=== PATIENT | female | born 1980 | race Caucasian/White ===

== ENCOUNTER 2020-05-20 12:57 | Outpatient (REF) | payer BC, SELFPAY ==
[2020-05-20 14:49] LABS: Free T4 (Free Thyroxine) 0.94 ng/dL (0.71-1.85); Thyroid Stimulating Hormone 0.99 uIU/mL (0.32-4.0)
== END 2020-05-20 12:58 | disposition home or self-care (01) ==
LOC: HO.HMGCLDS 12:57
PROVIDERS: PCP Internal Medicine; Visit Provider Internal Medicine Endocrinology, Diabetes & Metabolism
DX: E03.8 Other specified hypothyroidism (principal)
CPT/HCPCS: 84439; 84443

== ENCOUNTER → 2020-05-23 11:43 | Outpatient (BNVA) | payer BC, SELFPAY | PROVIDERS: PCP Internal Medicine; Referring Provider Internal Medicine; Visit Provider Internal Medicine Endocrinology, Diabetes & Metabolism | DX: Z76.89 Persons encountering health services in other specified circumstances (principal) ==

== ENCOUNTER 2020-06-13 08:04 | Outpatient (REF) | payer BC, SELFPAY ==
--- NOTE | 2020-06-13 08:07 | US_ITS ---
EXAMINATION: US THYROID CLINICAL INFORMATION: Fabián disease, enlarged thyroid. COMPARISON: None TECHNIQUE: Linear transducer clements-scale and color Doppler examination with attention to the region of the thyroid. FINDINGS: SIZE: Measurements of the thyroid lobes and nodules are given in sagittal, anteroposterior and transverse dimensions respectively. Right Thyroid Lobe: 5.85 x 2.06 x 1.74 cm, volume 11.0 mL. Parenchyma: The gland echotexture is heterogeneous. Thyroid vascularity is normal. Left Thyroid Lobe: 5.50 x 1.58 x 1.86 cm, volume 8.44 mL. Parenchyma: The gland echotexture is heterogeneous. Thyroid vascularity is normal. Isthmus: 0.81 cm in maximum AP dimension. RIGHT THYROID LOBE: There are 4 nodules seen. 1. Location: Lower. Size: 1.4 x 0.80 x 1.0 cm. Nodule characteristics: Hyperechoic, hypoechoic rind with intranodular flow.. 2. Location: Mid pole. Size: 1.3 x 1.3 x 1.4 cm. Nodule characteristics: Hypoechoic, irregular margins with peripheral vascular flow, likely complex cyst. 3. Location: Midpole. Size: 0.81 x 0.60 x 0.60 cm. Nodule characteristics: Heterogeneous, smoothly marginated with intranodular flow. 4. Location: Upper. Size: 1.0 x 1.0 x 0.70 cm. Nodule characteristics: Heterogeneous, smoothly marginated with intranodular flow. ISTHMUS: No nodules. LEFT THYROID LOBE: There is 1 nodule seen. 1. Location: Upper/mid. Size: 1.1 x 1.0 x 0.90 cm. Nodule characteristics: Hypoechoic, smoothly marginated with intranodular flow. NODES: No lymphadenopathy is seen in the tissue surrounding the thyroid gland. US/US thyroid IMPRESSION: Two suspicious nodules. The 1st nodule is hyperechoic and the 2nd nodule is hypoechoic with internal echogenicity and irregular borders. Both these nodules are suspicious especially the hypoechoic nodule. Recommend fine-needle biopsy or short-term follow-up in 6 months.
== END 2020-06-13 08:05 | disposition home or self-care (01) ==
LOC: HO.HMGCX 08:04
PROVIDERS: PCP Internal Medicine; Visit Provider Internal Medicine Endocrinology, Diabetes & Metabolism
DX: E03.8 Other specified hypothyroidism (principal); E06.3 Autoimmune thyroiditis
CPT/HCPCS: 76536

== ENCOUNTER 2020-07-13 12:32 | Outpatient (REF) | payer BC, SELFPAY ==
--- NOTE | 2020-07-13 14:47 | XR_ITS ---
EXAMINATION: XR CHEST CLINICAL INFORMATION: Moderate/severe obesity due to excess calories. COMPARISON: Chest 03/15/2020 TECHNIQUE: 2 views of the chest were obtained. FINDINGS: No significant abnormality is noted involving the heart, lungs, mediastinum, bony thorax or soft tissues. XR/XR chest 2V IMPRESSION: Unremarkable chest examination. No change from 03/15/2020
[2020-07-13 16:33] LABS: MANUAL DIFF FLAG NO
[2020-07-13 16:40] LABS: Basophils Absolute Auto 0.1 X10*3/uL (0.0-0.2); Basophils Percent Auto 0.7 % (0-2); Eosinophils Absolute Auto 0.3 X10*3/uL (0.0-0.4); Eosinophils Percent Auto 3.8 % (0-4); Hematocrit 38.4 % (37-47); Hemoglobin 11.7 g/dl (12.0-16.0); Imm Gran Abs Auto 0.01 X10*3/uL (0.00-0.03); Imm Gran Pct Auto 0.1 % (0.0-0.4); Lymphocytes Absolute Auto 2.1 X10*3/uL (1.2-4.9); Lymphocytes Percent Auto 23.8 % (20-40); Mean Corpuscular HGB Conc 30.5 g/dl (31.0-35.0); Mean Corpuscular Hemoglobin 24.5 pg (27.0-33.0); Mean Corpuscular Volume 80.3 fL (80-98); Mean Platelet Volume 10.3 fL (9.4-12.3); Monocytes Absolute Auto 0.5 X10*3/uL (0.1-1.2); Monocytes Percent Auto 5.8 % (2-11); Neutrophils Absolute Auto 5.9 X10*3/uL (2.0-8.3); Neutrophils Percent Auto 65.8 % (45-73); Platelet Count 500 X10*3/uL (160-400); Red Blood Count 4.78 X10*6/uL (4.20-5.50); Red Cell Distribution Width 14.9 % (11.0-16.0)
[2020-07-13 16:42] LABS: Estimated Average Glucose 111 mg/dL; Hemoglobin A1c % 5.5 %
[2020-07-13 17:02] LABS: Alanine Aminotransferase 17 U/L (0-31); Albumin Level 4.4 g/dL (3.5-5.0); Alkaline Phosphatase 52 U/L (39-117); Anion Gap 14 (12-20); Aspartate Amino Transferase 15 U/L (5-31); Bilirubin Total 0.3 mg/dL (0.0-1.0); Blood Urea Nitrogen 10 mg/dL (9-16); C Reactive Protein 3.23 mg/dL (< or = 0.50); Calcium 8.9 mg/dL (8.4-10.2); Carbon Dioxide 27 mmol/L (22-29); Chloride 103 mmol/L (96-108); Cholesterol 167 mg/dL; Estimated Glomerular Filt Rate > 60; Glucose Random 91 mg/dL (60-115); HDL Cholesterol 50 mg/dL; LDL Cholesterol Calculated 95 mg/dl; Potassium 4.3 mmol/l (3.3-5.1); Sodium 140 mmol/L (135-145); Total Protein 7.2 g/dL (6.5-8.0); Triglycerides 110 mg/dL
[2020-07-13 17:25] LABS: Ferritin 11 ng/mL (10-122); TSH reflex Free T4 3.61 mIU/mL (0.32-4.0); Vitamin D 25-OH Total 33.3 ng/mL (>30)
[2020-07-13 17:33] LABS: Folate 10.1 ng/mL (> or = 4.0); Vitamin B12 563 pg/mL (200-900)
[2020-07-14 16:22] LABS: Calcium (PTHI) 9.3 mg/dL (8.6-10.2); PTHI 41 pg/mL (14-64)
[2020-07-15 16:33] LABS: Zinc 59 mcg/dL (60-130)
[2020-07-18 12:56] LABS: Vitamin B1 18 nmol/L (8-30)
[2020-07-20 14:17] LABS: Vitamin A 34 mcg/dL (38-98)
== END 2020-07-13 12:33 | disposition home or self-care (01) ==
LOC: HO.HMGCLDS 12:32
PROVIDERS: PCP Internal Medicine; Visit Provider Physician Assistant
DX: E66.01 Morbid (severe) obesity due to excess calories (principal); Z68.43 Body mass index [BMI] 50.0-59.9, adult; E04.2 Nontoxic multinodular goiter; E03.8 Other specified hypothyroidism; E06.3 Autoimmune thyroiditis
CPT/HCPCS: 36415; 71046; 80053; 80061; 82306; 82607; 82728; 82746; 83036; 83525; 83970; 84425; 84443; 84590; 84630; 85025; 86140

== ENCOUNTER 2020-07-14 08:04 | Outpatient (REF) | payer BC, SELFPAY ==
--- NOTE | 2020-07-14 08:08 | ECG_ITS ---
Test Reason : E66.01 Blood Pressure : / mmHG Vent. Rate : 074 BPM Atrial Rate : 074 BPM P-R Int : 162 ms QRS Dur : 096 ms QT Int : 380 ms P-R-T Axes : 010 043 027 degrees QTc Int : 421 ms Normal sinus rhythm Normal ECG No previous ECGs available Referred By: Johanna Alas Electronically Signed By:Jesus Clay
--- NOTE | 2020-07-14 09:43 | P.BOP_ITS ---
Brief Operative Note Date of Service: 07/14/20 Pre-op diagnosis: NONTOXIC MULTINODULAR GOITER Post-op diagnosis: same Procedure: This procedure was explained to the patient. Alternatives, risks and benefits were discussed. Written consent was obtained. After sterile preparation of the skin, fine-needle aspiration biopsy of right mid pole thyroid nodule, size 1.3 x 1.3 x 1.4 cm was performed under direct ultrasound guidance to confirm accurate needle placement. Three passes were performed with 27 gauge needles. Sample was submitted to cytology, initial cytology reading was adequate. Two passes were dedicated for [employer] genomic sequencing four horse hitch driver test. Second fine needle aspiration biopsy was performed in left mid pole nodule, size 1.1 x 1.0 x 0.90 cm was performed under direct ultrasound guidance to confirm accurate needle placement. Three passes were performed with 27 gauge needles. Samples were submitted for cytology, initial cytology reading was adequate. Two passes were dedicated for [employer] genomic sequencing four horse hitch driver test. Patient tolerated procedure well. Aftercare instructions were provided. Impression: uncomplicated fine-needle aspiration biopsy of ------ thyroid nodule under direct ultrasound guidance. Surgeon: Carie Multani MD Anesthesia: local (Lidocaine 1% 2 ml.) Estimated blood loss (mL): 0 Condition: stable Disposition: same day
[2020-07-14] MEDS: Lidocaine HCl 1 % MPF 5 ML VIAL SUBCUT (12:10)
== END 2020-07-14 08:05 | disposition home or self-care (01) ==
LOC: HO.US 08:04
PROVIDERS: PCP Internal Medicine; Referring Provider Physician Assistant; Visit Provider Internal Medicine Endocrinology, Diabetes & Metabolism
DX: Z01.818 Encounter for other preprocedural examination (principal); E04.2 Nontoxic multinodular goiter; E66.01 Morbid (severe) obesity due to excess calories; Z68.43 Body mass index [BMI] 50.0-59.9, adult
CPT/HCPCS: 10005; 10006; 88172; 88173; 93005

== ENCOUNTER 2020-07-20 12:06 | Outpatient (REF) | payer BC, SELFPAY ==
[2020-07-20 14:49] LABS: Free T4 (Free Thyroxine) 1.05 ng/dL (0.71-1.85); Thyroid Stimulating Hormone 2.81 uIU/mL (0.32-4.0)
[2020-07-21 06:28] LABS: Thyroglobulin Antibodies <1 IU/mL (< or = 1); Thyroid Peroxidase Antibodies >900 IU/mL (<9)
== END 2020-07-20 12:07 | disposition home or self-care (01) ==
LOC: HO.LAB 12:06
PROVIDERS: PCP Internal Medicine; Visit Provider Internal Medicine Endocrinology, Diabetes & Metabolism
DX: E04.2 Nontoxic multinodular goiter (principal); E03.8 Other specified hypothyroidism; E06.3 Autoimmune thyroiditis; E66.01 Morbid (severe) obesity due to excess calories; Z68.43 Body mass index [BMI] 50.0-59.9, adult; Z79.899 Other long term (current) drug therapy
CPT/HCPCS: 36415; 84439; 84443; 86376; 86800

== ENCOUNTER → 2020-07-28 08:26 | Outpatient (BNVA) | payer BC, SELFPAY | PROVIDERS: PCP Internal Medicine; Visit Provider Physician Assistant ==

== ENCOUNTER → 2020-08-05 15:21 | Outpatient (BNVA) | payer BC, SELFPAY | PROVIDERS: PCP Internal Medicine; Visit Provider Surgery | DX: Z01.818 Encounter for other preprocedural examination (principal); E50.9 Vitamin A deficiency, unspecified ==

== ENCOUNTER → 2020-08-22 08:11 | Outpatient (BNVA) | payer BC, SELFPAY | PROVIDERS: PCP Internal Medicine; Visit Provider Dietitian, Registered ==

== ENCOUNTER 2020-08-30 10:55 | Outpatient (REF) | payer BC, SELFPAY ==
[2020-08-31 15:22] LABS: H Pylori Breath Test NOT DETECTED (NOT DETECTED)
== END 2020-08-30 10:56 | disposition home or self-care (01) ==
LOC: HO.LNP 10:55
PROVIDERS: PCP Internal Medicine; Visit Provider Surgery
DX: E66.01 Morbid (severe) obesity due to excess calories (principal); Z68.42 Body mass index [BMI] 45.0-49.9, adult; Z11.0 Encounter for screening for intestinal infectious diseases
CPT/HCPCS: 83013

== ENCOUNTER → 2020-09-05 07:48 | Outpatient (BNVA) | payer BC, SELFPAY | PROVIDERS: PCP Internal Medicine; Visit Provider Internal Medicine Endocrinology, Diabetes & Metabolism ==

== ENCOUNTER → 2020-09-12 13:07 | Outpatient (BNVA) | payer BC, SELFPAY | PROVIDERS: PCP Internal Medicine; Visit Provider Dietitian, Registered ==

== ENCOUNTER → 2020-09-13 15:32 | Outpatient (BNVA) | payer BC, SELFPAY | PROVIDERS: PCP Internal Medicine; Visit Provider Surgery ==

== ENCOUNTER → 2020-09-30 08:55 | Outpatient (BNVA) | payer BC, SELFPAY | PROVIDERS: PCP Internal Medicine; Visit Provider Surgery ==

== ENCOUNTER 2020-10-13 07:48 | Outpatient (REF) | payer BC, SELFPAY ==
[2020-10-13 12:28] LABS: Free T4 (Free Thyroxine) 1.01 ng/dL (0.71-1.85); Thyroid Stimulating Hormone 0.05 uIU/mL (0.32-4.0)
[2020-10-18 12:51] LABS: Vitamin A 23 mcg/dL (38-98)
[2020-10-19 05:46] LABS: Thyroglobulin Antibody <1 IU/mL (<=1); Thyroglobulin Level 0.5 ng/mL
== END 2020-10-13 07:49 | disposition home or self-care (01) ==
LOC: HO.HMGCLDS 07:48
PROVIDERS: Surgery; PCP Internal Medicine; Visit Provider Internal Medicine Endocrinology, Diabetes & Metabolism
DX: Z01.818 Encounter for other preprocedural examination (principal); E50.9 Vitamin A deficiency, unspecified; C73 Malignant neoplasm of thyroid gland; E03.8 Other specified hypothyroidism; E04.2 Nontoxic multinodular goiter; E06.3 Autoimmune thyroiditis
CPT/HCPCS: 36415; 84432; 84439; 84443; 84590; 86800

== ENCOUNTER → 2020-10-19 09:10 | Outpatient (BNVA) | payer BC, SELFPAY | PROVIDERS: PCP Internal Medicine; Visit Provider Internal Medicine Endocrinology, Diabetes & Metabolism ==

== ENCOUNTER → 2020-10-21 15:33 | Outpatient (BNVA) | payer BC, SELFPAY | PROVIDERS: PCP Internal Medicine; Visit Provider Physician Assistant ==

== ENCOUNTER → 2020-10-24 15:35 | Outpatient (BNVA) | payer BC, SELFPAY | PROVIDERS: PCP Internal Medicine; Visit Provider Surgery ==

== ENCOUNTER → 2020-11-15 14:20 | Outpatient (BNVA) | payer BC, SELFPAY | PROVIDERS: PCP Internal Medicine; Referring Provider Internal Medicine; Visit Provider Surgery ==

== ENCOUNTER → 2020-11-28 07:57 | Outpatient (BNVA) | payer BC, SELFPAY | PROVIDERS: PCP Internal Medicine; Visit Provider Internal Medicine Endocrinology, Diabetes & Metabolism | DX: C73 Malignant neoplasm of thyroid gland (principal) | CPT/HCPCS: 96372; J3240 ==

== ENCOUNTER → 2020-11-29 07:54 | Outpatient (BNVA) | payer BC, SELFPAY | PROVIDERS: PCP Internal Medicine; Visit Provider Internal Medicine Endocrinology, Diabetes & Metabolism | DX: C73 Malignant neoplasm of thyroid gland (principal) | CPT/HCPCS: 96372 ==

== ENCOUNTER 2020-11-30 07:55 | Outpatient (REF) | payer BC, SELFPAY ==
[2020-11-30 10:42] LABS: HCG Quantitative < 2 mIU/mL
[2020-11-30 12:17] LABS: HCG Quantitative < 2 mIU/mL; Thyroid Stimulating Hormone 60.29 uIU/mL (0.32-4.0)
[2020-12-04 03:47] LABS: Thyroglobulin Antibody <1 IU/mL (<=1); Thyroglobulin Level 0.5 ng/mL
[2020-12-04 11:27] LABS: Vitamin A 35 mcg/dL (38-98)
== END 2020-11-30 07:56 | disposition home or self-care (01) ==
LOC: HO.HMGCLDS 07:55
PROVIDERS: Surgery; PCP Internal Medicine; Visit Provider Internal Medicine Endocrinology, Diabetes & Metabolism
DX: Z01.818 Encounter for other preprocedural examination (principal); C73 Malignant neoplasm of thyroid gland; E50.9 Vitamin A deficiency, unspecified; E03.8 Other specified hypothyroidism; E04.2 Nontoxic multinodular goiter; E06.3 Autoimmune thyroiditis
CPT/HCPCS: 36415; 84432; 84439; 84443; 84590; 84702; 86800

== ENCOUNTER 2020-12-24 09:25 | Outpatient (REF) | payer BC, SELFPAY ==
[2020-12-24 11:04] LABS: Free T4 (Free Thyroxine) 1.13 ng/dL (0.71-1.85); Thyroid Stimulating Hormone 0.03 uIU/mL (0.32-4.0)
[2020-12-27 03:47] LABS: Thyroglobulin Antibody <1 IU/mL (<=1); Thyroglobulin Level <0.1 ng/mL
[2020-12-28 14:56] LABS: Vitamin A 39 mcg/dL (38-98)
== END 2020-12-24 09:26 | disposition home or self-care (01) ==
LOC: HO.LAB 09:25
PROVIDERS: Surgery; PCP Internal Medicine; Visit Provider Internal Medicine Endocrinology, Diabetes & Metabolism
DX: Z01.818 Encounter for other preprocedural examination (principal); E50.9 Vitamin A deficiency, unspecified; C73 Malignant neoplasm of thyroid gland
CPT/HCPCS: 36415; 84432; 84439; 84443; 84590; 86800

== ENCOUNTER → 2020-12-26 08:08 | Outpatient (BNVA) | payer BC, SELFPAY | PROVIDERS: PCP Internal Medicine; Visit Provider Internal Medicine Endocrinology, Diabetes & Metabolism ==

== ENCOUNTER → 2021-01-09 14:17 | Outpatient (BNVA) | payer BC, SELFPAY | PROVIDERS: PCP Internal Medicine; Referring Provider Internal Medicine; Visit Provider Surgery ==

== ENCOUNTER 2021-03-03 07:42 | Outpatient (REF) | payer BC, SELFPAY ==
[2021-03-03 12:14] LABS: Free T4 (Free Thyroxine) 1.09 ng/dL (0.71-1.85); Thyroid Stimulating Hormone 0.22 uIU/mL (0.32-4.0)
[2021-03-08 05:01] LABS: Thyroglobulin Antibody <1 IU/mL (<=1); Thyroglobulin Level 0.2 ng/mL
== END 2021-03-03 07:43 | disposition home or self-care (01) ==
LOC: HO.HMGCLDS 07:42
PROVIDERS: PCP Internal Medicine; Visit Provider Internal Medicine Endocrinology, Diabetes & Metabolism
DX: C73 Malignant neoplasm of thyroid gland (principal)
CPT/HCPCS: 36415; 84432; 84439; 84443; 86800

== ENCOUNTER → 2021-04-14 13:58 | Outpatient (BNVA) | payer BC, SELFPAY | PROVIDERS: PCP Internal Medicine; Referring Provider Surgery; Visit Provider Physician Assistant Surgical ==

== ENCOUNTER 2021-05-01 07:34 | Outpatient (REF) | payer BC, SELFPAY ==
[2021-05-01 07:53] LABS: MANUAL DIFF FLAG NO
[2021-05-01 11:48] LABS: Basophils Percent Auto 0.5 % (0-2); Eosinophils Absolute Auto 0.5 X10*3/uL (0.0-0.4); Eosinophils Percent Auto 5.5 % (0-4); Hematocrit 39.1 % (37.0-47.0); Hemoglobin 12.2 g/dl (12.0-16.0); Imm Gran Abs Auto 0.03 X10*3/uL (0.00-0.03); Imm Gran Pct Auto 0.4 % (0.0-0.4); Immature Retic Fraction 20.3 % (3.0-15.9); Lymphocytes Absolute Auto 1.8 X10*3/uL (1.2-4.9); Lymphocytes Percent Auto 20.4 % (20-40); Mean Corpuscular HGB Conc 31.2 g/dl (31.0-35.0); Mean Corpuscular Hemoglobin 26.2 pg (27.0-33.0); Mean Corpuscular Volume 84.1 fL (80.0-98.0); Mean Platelet Volume 10.1 fL (9.4-12.3); Monocytes Absolute Auto 0.5 X10*3/uL (0.1-1.2); Monocytes Percent Auto 5.7 % (2-11); Neutrophils Absolute Auto 5.8 x10*3/uL (2.0-8.3); Neutrophils Percent Auto 67.5 % (45-73); Platelet Count 420 X10*3/uL (160-400); Red Blood Count 4.65 X10*6/uL (4.20-5.50); Red Cell Distribution Width 14.4 % (11.0-16.0); Retic HGB Equivalent 28.9 pg (30.0-35.0); Reticulocyte Percent 1.7 % (0.5-1.8); Reticulocytes Absolute 0.079 X10*6/uL (0.026-0.095); White Blood Count 8.6 X10*3/uL (4.8-10.8)
[2021-05-01 12:16] LABS: Estimated Average Glucose 105 mg/dL; Hemoglobin A1c % 5.3 %
[2021-05-01 12:28] LABS: Alanine Aminotransferase 18 U/L (0-31); Albumin Level 3.9 g/dL (3.5-5.0); Alkaline Phosphatase 57 U/L (39-117); Anion Gap 12 (12-20); Aspartate Amino Transferase 18 U/L (5-31); Bilirubin Total 0.5 mg/dL (0.0-1.0); Blood Urea Nitrogen 11 mg/dL (9-16); Calcium 8.4 mg/dL (8.4-10.2); Carbon Dioxide 27 mmol/L (22-29); Chloride 105 mmol/L (96-108); Cholesterol 181 mg/dL; Estimated Glomerular Filt Rate > 60; Glucose Random 88 mg/dL (60-115); HDL Cholesterol 51 mg/dL; Iron 38 mcg/dL (30-160); LDL Cholesterol Calculated 112 mg/dl; Percent Iron Saturation 11 % (15-50); Potassium 4.4 mmol/L (3.3-5.1); Sodium 140 mmol/L (135-145); Total Iron Binding Capacity 346 mcg/dL (228-428); Total Protein 6.6 g/dL (6.5-8.0); Triglycerides 94 mg/dL; Unsaturated Iron Binding 308 ug/dL
[2021-05-01 12:32] LABS: Ferritin 14 ng/mL (10-122); Free T4 (Free Thyroxine) 0.98 ng/dL (0.71-1.85); Thyroid Stimulating Hormone 0.57 uIU/mL (0.32-4.0); Vitamin D 25-OH Total 27.3 ng/mL (>30)
[2021-05-01 12:35] LABS: Folate 10.6 ng/mL (> or = 4.0); Vitamin B12 453 pg/mL (200-900)
[2021-05-05 07:12] LABS: Thyroglobulin Antibody <1 IU/mL (<=1); Thyroglobulin Level 0.1 ng/mL
[2021-05-06 01:46] LABS: Vitamin A 36 mcg/dL (38-98)
== END 2021-05-01 07:35 | disposition home or self-care (01) ==
LOC: HO.HMGCLDS 07:34
PROVIDERS: Internal Medicine Endocrinology, Diabetes & Metabolism; PCP Internal Medicine; Visit Provider Internal Medicine
DX: E89.0 Postprocedural hypothyroidism (principal)
CPT/HCPCS: 36415; 80053; 80061; 82306; 82607; 82728; 82746; 83036; 83540; 84432; 84439; 84443; 84590; 85025; 85045; 86800

== ENCOUNTER → 2021-05-22 07:53 | Outpatient (BNVA) | payer BC, SELFPAY | PROVIDERS: PCP Internal Medicine; Referring Provider Internal Medicine; Visit Provider Internal Medicine ==

== ENCOUNTER 2021-05-31 11:31 | Outpatient (REF) | payer BC, SELFPAY ==
--- NOTE | ~2021-05-31 | US_ITS ---
EXAMINATION: US SOFT TISSUE NECK CLINICAL INFORMATION: Post thyroidectomy August 2020. History of papillary thyroid cancer. COMPARISON: None TECHNIQUE: Ultrasound of the neck soft tissues is performed with high-frequency clements-scale imaging and color Doppler. FINDINGS: THYROID BED: Prior thyroidectomy. No residual thyroid tissue demonstrated in the thyroid bed. No cystic or solid nodules demonstrated in the thyroid bed. RIGHT NECK SOFT TISSUES: There are 6 right cervical lymph nodes identified. The largest nodes are as follows: Level 2: 1.7 x 0.5 x 1.1 cm. Abnormal fei architecture with slit-like or absent hilum. The remainder of the lymph nodes demonstrate normal ultrasound morphology. The next largest lymph node: Level 3: 1.5 x 0.3 x 0.8 cm. Normal fei architecture. LEFT NECK SOFT TISSUES: There are 6 left cervical lymph nodes identified. The largest nodes are as follows: Level 5A: 1.9 x 0.4 x 1.1 cm. Abnormal architecture with slitlike or absent hilum. The remainder of the lymph nodes demonstrate normal ultrasound morphology. Level 5B: 1.2 x 0.2 x 0.8 cm. Normal fei architecture. Level 2: 1 x 0.5 x 0.8 cm. Normal fei architecture. US/US soft tiss head and/or neck IMPRESSION: No residual thyroid tissue or nodule seen. Bilateral cervical lymph nodes.
== END 2021-05-31 11:32 | disposition home or self-care (01) ==
LOC: HO.HMGCX 11:31
PROVIDERS: Visit Provider Internal Medicine
DX: Z85.850 Personal history of malignant neoplasm of thyroid (principal)
CPT/HCPCS: 76536

== ENCOUNTER → 2021-06-28 14:19 | Outpatient (BNVA) | payer BC, SELFPAY | PROVIDERS: PCP Internal Medicine; Visit Provider Internal Medicine ==

== ENCOUNTER 2021-07-10 09:02 | Outpatient (REF) | payer BC, SELFPAY ==
--- NOTE | ~2021-07-10 | US_ITS ---
EXAMINATION: ULTRASOUND-GUIDED LYMPH NODE FINE-NEEDLE ASPIRATION CLINICAL INFORMATION: Cervical lymphadenopathy. History of thyroid cancer. COMPARISON: Previous neck ultrasound 05/31/2021 TECHNIQUE: Procedure and risks and benefits including bleeding and infection were discussed with the patient and informed consent was obtained. Initially, the left neck was prepped and draped in the usual sterile fashion. The skin and soft tissues were anesthetized with 1% lidocaine plain. Using a 25-gauge needle, 2 FNA specimens left level 5A lymph node were obtained. Subsequently, the right neck was prepped and draped in the usual sterile fashion. The skin and soft tissues were anesthetized with 1% lidocaine plain. Using guidance and a 25-gauge needle, 4 separate 25-gauge FNA specimens of the right lobe of 2 lymph nodes were obtained. FINDINGS: There is a 0.3 x 1.5 x 0.4 cm right level 2 lymph node and a 0.8 x 1.4 x 0.7 cm left level 5A lymph node that was targeted for fine-needle aspiration. US/US biopsy lymph node IMPRESSION: Bilateral cervical lymph node fine-needle aspiration.
[2021-07-10] MEDS: Lidocaine HCl 1 % MPF 5 ML VIAL 6 ML SUBCUT (10:42)
[2021-07-15 17:42] LABS: Thyroglobulin, Fine Needle Asp <0.1 ng/mL
== END 2021-07-10 09:03 | disposition home or self-care (01) ==
LOC: HO.US 09:02
PROVIDERS: Radiology Diagnostic Radiology; Visit Provider Internal Medicine
DX: R59.0 Localized enlarged lymph nodes (principal)
CPT/HCPCS: 36415; 38505; 76942; 84432; 88172; 88173; 88177

== ENCOUNTER 2021-10-06 14:12 | Outpatient (REF) | payer BC, SELFPAY ==
[2021-10-06 16:45] LABS: Estimated Average Glucose 108 mg/dL; Hemoglobin A1c % 5.4 %
[2021-10-06 16:51] LABS: Alanine Aminotransferase 19 U/L (0-31); Albumin Level 3.9 g/dL (3.5-5.0); Alkaline Phosphatase 50 U/L (39-117); Anion Gap 11 (12-20); Aspartate Amino Transferase 17 U/L (5-31); Bilirubin Total 0.3 mg/dL (0.0-1.0); Blood Urea Nitrogen 12 mg/dL (9-16); Calcium 8.8 mg/dL (8.4-10.2); Carbon Dioxide 27 mmol/L (22-29); Chloride 105 mmol/L (96-108); Estimated Glomerular Filt Rate > 60; Glucose Random 89 mg/dL (60-115); Potassium 4.4 mmol/L (3.3-5.1); Sodium 139 mmol/L (135-145); Total Protein 6.7 g/dL (6.5-8.0)
[2021-10-06 17:12] LABS: Free T4 (Free Thyroxine) 1.09 ng/dL (0.71-1.85); Thyroid Stimulating Hormone 0.14 uIU/mL (0.32-4.0); Vitamin D 25-OH Total 31.8 ng/mL (>30)
[2021-10-09 15:57] LABS: Calcium (PTHI) 8.5 mg/dL (8.6-10.2); PTHI 51 pg/mL (16-77)
== END 2021-10-06 14:13 | disposition home or self-care (01) ==
LOC: HO.HMGCLDS 14:12
PROVIDERS: Visit Provider Internal Medicine
DX: E89.0 Postprocedural hypothyroidism (principal); E66.01 Morbid (severe) obesity due to excess calories; E55.9 Vitamin D deficiency, unspecified; Z85.850 Personal history of malignant neoplasm of thyroid
CPT/HCPCS: 36415; 80053; 82306; 83036; 83970; 84439; 84443

== ENCOUNTER → 2021-10-09 07:42 | Outpatient (BNVA) | payer BC, SELFPAY | PROVIDERS: PCP Internal Medicine; Visit Provider Internal Medicine | DX: Z13.89 Encounter for screening for other disorder (principal) ==

== ENCOUNTER 2021-10-11 08:01 | Outpatient (REF) | payer BC, SELFPAY ==
[2021-10-11 12:02] LABS: Albumin Level 3.9 g/dL (3.5-5.0); Phosphorus 3.5 mg/dL (2.7-4.5)
[2021-10-11 12:26] LABS: Vitamin D 25-OH Total 33.3 ng/mL (>30)
[2021-10-13 13:02] LABS: Calcium (PTHI) 8.5 mg/dL (8.6-10.2); PTHI 45 pg/mL (16-77)
== END 2021-10-11 08:02 | disposition home or self-care (01) ==
LOC: HO.HMGCLDS 08:01
PROVIDERS: PCP Internal Medicine; Visit Provider Internal Medicine
DX: E55.9 Vitamin D deficiency, unspecified (principal)
CPT/HCPCS: 36415; 82040; 82306; 82310; 83970; 84100

== ENCOUNTER 2021-12-04 08:11 | Outpatient (REF) | payer BC, SELFPAY ==
[2021-12-04 11:55] LABS: Alanine Aminotransferase 21 U/L (0-31); Alkaline Phosphatase 59 U/L (39-117); Anion Gap 13 (12-20); Aspartate Amino Transferase 16 U/L (5-31); Bilirubin Total 0.4 mg/dL (0.0-1.0); Blood Urea Nitrogen 7 mg/dL (9-16); Calcium 8.8 mg/dL (8.4-10.2); Carbon Dioxide 26 mmol/L (22-29); Chloride 104 mmol/L (96-108); Estimated Glomerular Filt Rate > 60; Glucose Random 96 mg/dL (60-115); Potassium 4.6 mmol/L (3.3-5.1); Sodium 138 mmol/L (135-145); Total Protein 6.8 g/dL (6.5-8.0)
[2021-12-04 12:04] LABS: Free T4 (Free Thyroxine) 1.07 ng/dL (0.71-1.85); Thyroid Stimulating Hormone 0.08 uIU/mL (0.32-4.0)
[2021-12-05 13:57] LABS: Calcium (PTHI) 8.9 mg/dL (8.6-10.2); PTHI 36 pg/mL (16-77)
[2021-12-06 04:17] LABS: Thyroglobulin <0.1 ng/mL; Thyroglobulin Antibodies <1 IU/mL (< or = 1)
== END 2021-12-04 08:12 | disposition home or self-care (01) ==
LOC: HO.HMGCLDS 08:11
PROVIDERS: Visit Provider Internal Medicine
DX: E89.0 Postprocedural hypothyroidism (principal); E55.9 Vitamin D deficiency, unspecified; Z85.850 Personal history of malignant neoplasm of thyroid
CPT/HCPCS: 36415; 80053; 82306; 83970; 84432; 84439; 84443; 86800; 96372

== ENCOUNTER 2021-12-05 08:36 | Outpatient (REF) | payer BC, SELFPAY ==
[2021-12-05 12:01] LABS: HCG Quantitative < 2 mIU/mL
== END 2021-12-05 08:37 | disposition home or self-care (01) ==
LOC: HO.HMGCLDS 08:36
PROVIDERS: PCP Internal Medicine; Visit Provider Internal Medicine
DX: Z85.850 Personal history of malignant neoplasm of thyroid (principal)
CPT/HCPCS: 36415; 84702; 96372

== ENCOUNTER 2021-12-06 09:41 | Outpatient (REF) | payer BC, SELFPAY ==
[2021-12-06 12:08] LABS: Free T4 (Free Thyroxine) 1.27 ng/dL (0.71-1.85); Thyroid Stimulating Hormone 73.11 uIU/mL (0.32-4.0)
[2021-12-08 02:32] LABS: Thyroglobulin <0.1 ng/mL; Thyroglobulin Antibodies <1 IU/mL (< or = 1)
== END 2021-12-06 09:42 | disposition home or self-care (01) ==
LOC: HO.HMGCLDS 09:41
PROVIDERS: PCP Internal Medicine; Visit Provider Internal Medicine
DX: Z85.850 Personal history of malignant neoplasm of thyroid (principal)
CPT/HCPCS: 36415; 84432; 84439; 84443; 86800

== ENCOUNTER 2021-12-08 10:09 | Outpatient (REF) | payer BC, SELFPAY ==
[2021-12-08 12:01] LABS: Free T4 (Free Thyroxine) 1.22 ng/dL (0.71-1.85); Thyroid Stimulating Hormone 8.11 uIU/mL (0.32-4.0)
[2021-12-11 17:26] LABS: Thyroglobulin <0.1 ng/mL
[2021-12-12 19:41] LABS: Thyroglobulin Antibodies <1 IU/mL (< or = 1)
== END 2021-12-08 10:10 | disposition home or self-care (01) ==
LOC: HO.HMGCLDS 10:09
PROVIDERS: PCP Internal Medicine; Visit Provider Internal Medicine
DX: Z85.850 Personal history of malignant neoplasm of thyroid (principal)
CPT/HCPCS: 36415; 84432; 84439; 84443; 86800

== ENCOUNTER 2022-01-02 13:43 | Outpatient (REF) | payer BC, SELFPAY ==
--- NOTE | ~2022-01-02 | US_ITS ---
EXAMINATION: US SOFT TISSUE NECK CLINICAL INFORMATION: Enlarged lymph nodes., Iodine uptake on the right at level 2 COMPARISON: Ultrasound biopsy lymph node 07/10/2021. Ultrasound thyroid 06/13/2020. TECHNIQUE: Ultrasound of the neck soft tissues is performed with high- frequency clements-scale imaging and color Doppler. FINDINGS: THYROID BED: Prior thyroidectomy. No residual thyroid tissue demonstrated in the thyroid bed. No cystic or solid nodules demonstrated in the thyroid bed. RIGHT NECK SOFT TISSUES: Scattered architecturally normal nodes are present. The nodes show normal fatty hilus, normal cortical thickness, and no cystic change or calcification. No abnormal color flow. The largest nodes are as follows: Level 1B: 1.0 x 0.5 x 1.0 cm, not significantly changed previously 0.9 x 0.5 x 0.9 cm. Normal fei architecture. Level 3: 1.5 x 0.3 x 0.6 cm, previously 1.5 x 0.3 x 0.8 cm. Not significantly changed in size. Normal fei architecture. LEFT NECK SOFT TISSUES: Scattered architecturally normal nodes are present. The nodes show normal fatty hilus, normal cortical thickness, and no cystic change or calcification. No abnormal color flow. The largest nodes are as follows: Level 2: 1.1 x 0.4 x 1.2 cm, new from prior Normal fei architecture. Level 3: 1.7 x 0.4 x 1.0 cm, new from prior. Hilar architecture was not definitively appreciated however the node demonstrates a new normal oblong morphology, and does not appear rounded. US/US soft tiss head and/or neck IMPRESSION: 1. A 0.4 cm short axis left level 3 node is new from prior. Although hilar architecture was not definitively appreciated node does not demonstrate otherwise abnormal morphology. A 0.4 cm short axis left level 2 node is also new from prior, unremarkable in appearance. 2. A 0.5 cm short axis level 1B node and a 0.3 cm short axis level 3 node are not significantly changed in size from prior and demonstrate normal architecture. No new suspicious right cervical nodes. 3. If clinically indicated further evaluation of the neck soft tissues and nodes may be performed with CT soft tissue neck with intravenous contrast.
== END 2022-01-02 13:44 | disposition home or self-care (01) ==
LOC: HO.US 13:43
PROVIDERS: Visit Provider Internal Medicine
DX: R59.0 Localized enlarged lymph nodes (principal)
CPT/HCPCS: 76536

== ENCOUNTER 2022-01-11 14:32 | Outpatient (REF) | payer BC, SELFPAY ==
[2022-01-11 15:46] LABS: Free T4 (Free Thyroxine) 1.36 ng/dL (0.71-1.85); Thyroid Stimulating Hormone 0.04 uIU/mL (0.32-4.0)
== END 2022-01-11 14:33 | disposition home or self-care (01) ==
LOC: HO.LAB 14:32
PROVIDERS: PCP Internal Medicine; Visit Provider Internal Medicine
DX: Z85.850 Personal history of malignant neoplasm of thyroid (principal)
CPT/HCPCS: 84439; 84443

== ENCOUNTER 2022-02-05 11:52 | Outpatient (REF) | payer BC, SELFPAY ==
--- NOTE | ~2022-02-05 | XR_ITS ---
EXAMINATION: RIGHT FOOT AND RIGHT ANKLE. CLINICAL INFORMATION: Contusion of right foot. COMPARISON: None TECHNIQUE: 3 views right foot and 2 views right ankle FINDINGS: Right foot: There is no visible acute fracture, dislocation or subluxation seen. No bony or joint abnormality seen. The soft tissues of right foot are normal. Right ankle: There is no visible acute fracture, dislocation or subluxation. The ankle mortise and subtalar joints are normal. There is a calcaneal heel small enthesophyte. No soft tissue swelling seen. XR/XR foot RT min 3V IMPRESSION: Unremarkable right foot and right ankle exam. Small calcaneal heel enthesophyte seen.
--- NOTE | ~2022-02-05 | XR_ITS ---
EXAMINATION: RIGHT FOOT AND RIGHT ANKLE. CLINICAL INFORMATION: Contusion of right foot. COMPARISON: None TECHNIQUE: 3 views right foot and 2 views right ankle FINDINGS: Right foot: There is no visible acute fracture, dislocation or subluxation seen. No bony or joint abnormality seen. The soft tissues of right foot are normal. Right ankle: There is no visible acute fracture, dislocation or subluxation. The ankle mortise and subtalar joints are normal. There is a calcaneal heel small enthesophyte. No soft tissue swelling seen. XR/XR ankle RT 2V IMPRESSION: Unremarkable right foot and right ankle exam. Small calcaneal heel enthesophyte seen.
== END 2022-02-05 11:53 | disposition home or self-care (01) ==
LOC: HO.HMGCX 11:52
PROVIDERS: PCP Internal Medicine; Visit Provider Internal Medicine
DX: S90.31XA Contusion of right foot, initial encounter (principal); X58.XXXA Exposure to other specified factors, initial encounter; Y93.9 Activity, unspecified; Y92.9 Unspecified place or not applicable; Y99.9 Unspecified external cause status
CPT/HCPCS: 73600; 73630

== ENCOUNTER 2022-02-28 13:06 | Outpatient (REF) | payer BC, SELFPAY ==
[2022-02-28 15:18] LABS: Free T4 (Free Thyroxine) 1.17 ng/dL (0.71-1.85); Thyroid Stimulating Hormone 0.15 uIU/mL (0.32-4.0)
== END 2022-02-28 13:07 | disposition home or self-care (01) ==
LOC: HO.HMGCLDS 13:06
PROVIDERS: PCP Internal Medicine; Visit Provider Internal Medicine
DX: Z85.850 Personal history of malignant neoplasm of thyroid (principal)
CPT/HCPCS: 36415; 84439; 84443

== ENCOUNTER 2022-06-20 13:57 | Outpatient (REF) | payer BC, SELFPAY ==
--- NOTE | ~2022-06-20 | US_ITS ---
EXAMINATION: US SOFT TISSUE NECK CLINICAL INFORMATION: Personal history of malignant neoplasm of thyroid. COMPARISON: Ultrasound soft tissue neck 01/02/2022 and 05/31/2021. TECHNIQUE: Ultrasound of the neck soft tissues is performed with high-frequency clements-scale imaging and color Doppler. FINDINGS: THYROID BED: Prior thyroidectomy. No residual thyroid tissue demonstrated in the thyroid bed. No cystic or solid nodules demonstrated in the thyroid bed. RIGHT NECK SOFT TISSUES: In addition to the previously seen normal right-sided lymph nodes there is a new abnormal-appearing 1.5 x 0.6 x 0.8 cm right level 2 lymph node. The largest nodes are as follows: Level 2: 1.5 x 0.6 x 0.8 cm. Abnormal appearance with absence of the central fatty hilum. Level 3: 1.6 x 0.3 x 0.6 cm. Normal fei architecture. Unchanged from prior study. LEFT NECK SOFT TISSUES: In addition to the previously seen normal left-sided lymph nodes there is a there is an abnormal appearing left level 3 lymph node and a new left level 4 lymph node The largest nodes are as follows: Level 1B: 1.7 x 0.5 x 0.6 cm. This is new from the prior study but has normal fei architecture Level 3: 1.6 x 0.5 x 1.2 cm. This has an abnormal appearance with an absent fatty hilum. Level 4: 1.4 x 0.2 x 0.7 cm. This is new from prior study but has a normal fei architecture. US/US soft tiss head and/or neck IMPRESSION: 1. New and abnormal bilateral cervical lymph nodes are noted as described above. 2. If clinically indicated further evaluation of the neck soft tissues and nodes may be performed with CT soft tissue neck with intravenous contrast.
== END 2022-06-20 13:58 | disposition home or self-care (01) ==
LOC: HO.US 13:57
PROVIDERS: PCP Internal Medicine; Visit Provider Internal Medicine
DX: Z85.850 Personal history of malignant neoplasm of thyroid (principal)
CPT/HCPCS: 76536

== ENCOUNTER 2022-06-27 14:46 | Outpatient (REF) | payer BC, SELFPAY ==
[2022-06-27 17:15] LABS: Thyroid Stimulating Hormone 0.02 uIU/mL (0.32-4.0)
== END 2022-06-27 14:47 | disposition home or self-care (01) ==
LOC: HO.HMGCLDS 14:46
PROVIDERS: PCP Internal Medicine; Visit Provider Internal Medicine
DX: Z85.850 Personal history of malignant neoplasm of thyroid (principal)
CPT/HCPCS: 36415; 84439; 84443

== ENCOUNTER 2022-07-09 07:38 | Outpatient (REF) | payer BC, SELFPAY ==
[2022-07-09 13:12] LABS: Free T4 (Free Thyroxine) 1.21 ng/dL (0.71-1.85); Thyroid Stimulating Hormone 0.02 uIU/mL (0.32-4.0)
[2022-07-10 05:38] LABS: Thyroglobulin <0.1 ng/mL; Thyroglobulin Antibodies <1 IU/mL (< or = 1)
[2022-07-12 06:13] LABS: Thyroglobulin Antibody <1 IU/mL (<=1); Thyroglobulin Level <0.1 ng/mL
== END 2022-07-09 07:39 | disposition home or self-care (01) ==
LOC: HO.HMGCLDS 07:38
PROVIDERS: PCP Internal Medicine; Visit Provider Internal Medicine
DX: Z85.850 Personal history of malignant neoplasm of thyroid (principal)
CPT/HCPCS: 36415; 84432; 84439; 84443; 86800

== ENCOUNTER 2022-10-08 15:16 | Outpatient (REF) | payer BC, SELFPAY ==
[2022-10-08 17:57] LABS: Free T4 (Free Thyroxine) 1.08 ng/dL (0.71-1.85); Thyroid Stimulating Hormone 0.05 uIU/mL (0.32-4.0)
[2022-10-12 03:28] LABS: Thyroglobulin Antibody <1 IU/mL (<=1); Thyroglobulin Level <0.1 ng/mL
== END 2022-10-08 15:17 | disposition home or self-care (01) ==
LOC: HO.HMGCLDS 15:16
PROVIDERS: PCP Internal Medicine; Visit Provider Internal Medicine
DX: E89.0 Postprocedural hypothyroidism (principal); Z85.850 Personal history of malignant neoplasm of thyroid
CPT/HCPCS: 36415; 84432; 84439; 84443; 86800

== ENCOUNTER 2022-10-11 07:53 | Outpatient (REF) | payer BC, SELFPAY ==
--- NOTE | 2022-10-11 08:38 | PM.OP ---
Brief Operative Note Date of Service: 10/11/22 Pre-op diagnosis: History of thyroid cancer Procedure: EXAMINATION: US Cervical lymph nodes CLINICAL INFORMATION: Multinodular Thyroid COMPARISON: Prior TECHNIQUE: Linear transducer clements-scale and color Doppler examination with attention to the region of the thyroid. FINDINGS: SIZE: Measurements of the thyroid lobes and nodules are given in sagittal, anteroposterior and transverse dimensions respectively. No residual tissue noted within the thyroid bed. No abnormal lymph nodes identified within the cervical chain bilaterally. Surgeon: Hanh Edwards, DO Was an Coin Machine Mechanic used for this Procedure?: No Estimated blood loss (mL): 0
== END 2022-10-11 07:54 | disposition home or self-care (01) ==
LOC: HO.US 07:53
PROVIDERS: PCP Internal Medicine; Visit Provider Internal Medicine
DX: Z85.850 Personal history of malignant neoplasm of thyroid (principal)
CPT/HCPCS: 76536

== ENCOUNTER → 2022-10-29 15:01 | Outpatient (BNVA) | payer BC, SELFPAY | PROVIDERS: PCP Internal Medicine; Visit Provider Internal Medicine ==

== ENCOUNTER 2023-05-06 14:59 | Outpatient (AMB) | payer BC, SELFPAY ==
[2023-05-06 15:00] VITALS: BP 130/80; PULSE 83; BMI 32.2
--- NOTE | 2023-05-06 15:00 | MHC.OFFVIS ---
Intake Vital Signs 05/06/23 15:00 Height 5 ft 4 in Weight 187 lb 9.814 oz BMI 32.2 BP 130/80 Blood Pressure Location Lt brachial Position Sitting Pulse 83 Pulse Source Pulse Oximeter Intake Visit Reasons: F/U Thyroid Cancer Intake Note: Patient present for Thyroid Cancer follow up. Previously followed by Dr. Phelps. 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 She was previously followed by Dr. Barnett. The patient last saw Dr. Phelps on 10/29/2022 She has a history of hypothyroidism and underwent a thyroid US which revealed a multinodular thyroid. FNA biopsy was suspicious for PTC, so she was referred for a total thyroidectomy. She underwent a total thyroidectomy by Dr. Rand 08/17/2020, Official surgical pathology revealed 3 foci of PTC, 1.6 cm and 0.1 cm in L lobe, and 1.2 cm in the R lobe. This was conventional type, with focal tall cell features (<30%). There was no angioinvasion, no lymphatic invasion and no perineural invasion. There was focal extrathyroidal invsaion visualized. 1/6 lymph nodes were positive for thyroid cancer. [id number]. She underwent thyrogen stimulated adjuvant treatment 11/30/2020 with 99.5 mCi of I131. Her Stimulated labs 11/30/2020 TSH 60.29, TG 0.5 and TgAb <1. Her WBS completed 12/09/2020 revealed only physiologic uptake. She had labs repeated 05/01/2021 with TSH 0.57, TG 0.1 and TgAb <1. She had an US of the head and neck completed 05/31/2021 which revealed 2 abnormal appearing lymph nodes, a right level 2 1.7 cm and a left level 5A 1.9 cm cervical lymph node. She underwent FNA biopsy of these lymph nodes 07/10/2021 both with no evidence of malignancy, and both with negative thyroglobulin washout. She then underwent a thyrogen stimulated WBS 12/09/2021 which revealed intense uptake at the R level 2A level, with SPECT CT revealing 2 lymph nodes in that region measuring 7 mm and 8 mm respectively. Uptake was otherwise physiologic. 12/08/2021 with TSH 73.11, TG <0.1 and TGAB <1. Labs repeated again 06/27/2022 with TSH suppressed. Her dose of levothyroxine was decreased to 125 mcg PO daily at that time. She did undergo an US head and neck 06/20/2022 that was read as having multiple abnormal appearing lymph nodes. I repeated this myself 09/2022 and noted no abnormal appearing lymph nodes. She reports feeling well, other than fatigue. She has 4 young children at home and her is often working away from home. She does have a Family History of thyroid cancer in her cousin. US Head and Neck: 06/20/2022 FINDINGS: THYROID BED: Prior thyroidectomy. No residual thyroid tissue demonstrated in the thyroid bed. No cystic or solid nodules demonstrated in the thyroid bed. RIGHT NECK SOFT TISSUES: In addition to the previously seen normal right-sided lymph nodes there is a new abnormal-appearing 1.5 x 0.6 x 0.8 cm right level 2 lymph node. The largest nodes are as follows: Level 2: 1.5 x 0.6 x 0.8 cm.? Abnormal appearance with absence of the central fatty hilum. Level 3: 1.6 x 0.3 x 0.6 cm.? Normal fei architecture. Unchanged from prior study. LEFT NECK SOFT TISSUES: In addition to the previously seen normal left-sided lymph nodes there is a there is an abnormal appearing left level 3 lymph node and a new left level 4 lymph node The largest nodes are as follows: Level 1B: 1.7 x 0.5 x 0.6 cm.? This is new from the prior study but has normal fei architecture Level 3: 1.6 x 0.5 x 1.2 cm.? This has an abnormal appearance with an absent fatty hilum. Level 4: 1.4 x 0.2 x 0.7 cm.? This is new from prior study but has a normal fei architecture. Labs: Laboratory Tests 10/08/22 10/08/22 15:25 15:25 TSH 0.05 L Free T4 1.08 Thyroglobulin <0.1 Thyroglobulin Anti body <1 PFSH Medical History Anemia Anxiety Cervical lymphadenopathy Contusion of foot, right Distal radius fracture, left Eczema GERD (gastroesophageal reflux disease) Heart murmur History of thyroid cancer Hoarseness Morbid obesity due to excess calories Non-toxic multinodular goiter Obesity Post-surgical hypothyroidism Preop exam for internal medicine Primary thyroid cancer Umbilical hernia Ventral hernia Vitamin D deficiency Surgical History Carpal tunnel syndrome History of thyroidectomy Hx of section Hx of gastric bypass Hx of tonsillectomy Family History Father No problems noted. Mother No problems noted. Daughter No problems noted. Daughter No problems noted. Daughter No problems noted. Daughter No problems noted. Paternal Grandfather Penile cancer Social History Housing: House Alcohol intake: current Alcohol intake frequency: holidays/special occasions only Patient Tobacco Use Status: Former Tobacco user Tobacco use type: Cigarette Years Smoked: quit 2005 2 years e-Cigarette/Vaping Use: Never Used Second Hand Smoke Exposure: No service: No Current occupational status: employed Cognitive needs: No Hearing needs: No Vision needs: No Physical Exam Const Other: Healed scar status post thyroidectomy. 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 She has had undetectable thyroglobulin and neck ultrasound performed by Dr. Phelps showed no evidence of abnormal lymph nodes recently. She appears to Be clinically biochemically euthyroid Will continue levothyroxine 125 mcg.. Would aim for TSH level low normal. Recent TSH done a [facility] was 0.37. Will repeat neck ultrasound in about 6 months if abnormal lymph nodes seen by Radiology, may consider sending for 2nd opinion to Dr. Fowler at [facility] . After discussion with the patient, we decided to send her for 2nd opinion to Dr. Fowler Orders: Referrals Endocrinology Referral Z85.850 - Personal history of malignant neoplasm of thyroid Medications: New levothyroxine 125 mcg PO DAILY 30 tabs 5RF Discontinued levothyroxine Discontinued Reason: Doctor's Order 125 mcg PO DAILY 30 tabs 3RF Coding Level of Care Code Est Pt Level 3 (99769) Diagnoses History of thyroid cancer Z85.850
== END 2023-05-06 15:35 | disposition home or self-care (01) ==
PROVIDERS: PCP Internal Medicine; Visit Provider Internal Medicine Endocrinology, Diabetes & Metabolism
DX: Z85.850 Personal history of malignant neoplasm of thyroid (principal)
CPT/HCPCS: 99213

== ENCOUNTER → 2023-05-06 14:59 | Outpatient (BNVA) | payer BC, SELFPAY | PROVIDERS: Visit Provider Internal Medicine Endocrinology, Diabetes & Metabolism ==

== ENCOUNTER 2023-05-14 16:13 | Outpatient (AMB) | payer BC, SELFPAY ==
[2023-05-14 16:15] VITALS: BP 128/84; PULSE 57; O2SAT 97; BMI 31.8
--- NOTE | 2023-05-14 16:15 | A.OFFPC_ITS ---
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: No Accompanied by: Self / Same As Patient Allergies erythromycin base Allergy (Unknown, Verified 05/14/23 16:15) Stomach Upset Medication List - Last Reconciled 05/14/23 by Aman Mcnally MD [BARIATRIC VITAMINS 1 cap PO .QD] calcium 26-vit D3-magnesium 15 167 mg calcium- 1.67 mcg-83 mg caps PO .QD levothyroxine 125 mcg PO DAILY sertraline 50 mg PO DAILY 90 days Tobacco use date assessed: 01/22/23 Dental Screening Dental Screen Date: 05/14/23 Did you have a dental visit in the last 12 months?: Yes Did you have a dental problem in the last 6 months where you did not have access to dental care?: No Was dental information given to patient?: Patient has dentist HPI PHYSICAL HPI Details 42-year-old obese female with status pos t sleeve gastrectomy(March 2022), history of thyroid cancer generalized anxiety disorder GERD and hypothyroidism coming in for physical exam. Last seen last year in April 2022. Patient follows up with Endocrinology 05/06/2023 status post thyroidectomy August 2020 underwent Thyrogen stimulated adjuvant treatment November had ultrasound of the head and neck revealing 2 lymph nodes fine-needle aspiration no evidence of malignancy June 2022 multiple abnormal appearing lymph nodes but in October 04-patient was advised referral to be [facility]. Patient did see the nurse practitioner in January 2023 for follow-up. November 2022 patient followed up with the bariatric surgeon also patient was advised add exercise [facility] Medical History (Updated 05/14/23 @ 17:02 by Aman Mcnally MD) History of thyroid cancer Preop exam for internal medicine Contusion of foot, right Cervical lymphadenopathy Vitamin D deficiency Hoarseness Eczema Morbid obesity due to excess calories Primary thyroid cancer Ventral hernia Umbilical hernia Distal radius fracture, left Heart murmur Anxiety GERD (gastroesophageal reflux disease) Anemia Obesity Post-surgical hypothyroidism Non-toxic multinodular goiter Surgical History Hx of gastric bypass Carpal tunnel syndrome History of thyroidectomy Hx of section Hx of tonsillectomy Family History Father No problems noted. Mother No problems noted. Daughter No problems noted. Daughter No problems noted. Daughter No problems noted. Daughter No problems noted. Paternal Grandfather Penile cancer Social History (Updated 05/14/23 @ 16:53 by Aman Mcnally MD) Housing: House Alcohol intake: current Alcohol intake frequency: holidays/special occasions only Comment: once a year 2 drinks Patient Tobacco Use Status: Former Tobacco user Tobacco use type: Cigarette Years Smoked: quit 2005 2 years e-Cigarette/Vaping Use: Never Used Second Hand Smoke Exposure: No service: No Current occupational status: employed Cognitive needs: No Hearing needs: No Vision needs: No Questionnaire Thrive Questionnaire Date Thrive assessed: 01/22/23 JOANNE-7 AMB Questionnaire JOANNE-7 Date JOANNE - 7 assessed: 01/22/23 Source: Developed by Drs. Rene Pedro, Brandi Pascual, Arash Campuzano and colleagues, with an educational rhett from [employer]. Review of Systems Const Denies poor appetite and Denies weakness Eyes Denies no additional complaints ENT Reports Normal hearing present, Denies dizziness, Denies nasal congestion, Denies tinnitus and Denies sore throat Card Denies chest pain, Denies syncope, Denies rapid heart rate and Denies dyspnea Resp Denies cough and Denies dyspnea GI Denies change in stool character, Reports constipation, Denies diarrhea, Denies nausea and Denies vomiting Denies urinary frequency, Denies difficulty voiding and Denies dysuria Neuro Reports Normal hearing present, Denies confusion, Denies dizziness, Denies syncope and Denies weakness Psych Denies confusion Physical exam (Primary Care) Vital Signs: Last Vital Signs Pulse 57 05/14/23 16:15 BP 128/84 05/14/23 16:15 Pulse Ox 97 05/14/23 16:15 Oxygen Delivery Method Room Air 05/14/23 16:15 BMI result Body Mass Index 31.8 Tobacco/Smoking Status: Tobacco use Status Tobacco use date assessed 01/22/23 05/14/23 16:17 Patient Tobacco Use Status Former Tobacco user 05/14/23 16:17 Tobacco use type Cigarette 05/14/23 16:17 e-Cigarette/Vaping Use Never Used 05/14/23 16:17 Thrive Assessment: Date of Thrive Assessment Date Thrive assessed 01/22/23 05/14/23 16:17 Const General: No confusion Orientation/consciousness: No confusion HENMT Head: Yes normocephalic Ears: external ears normal and TM's normal bilaterally Face and sinus: Yes normal facial exam Mouth: moist mucous membranes Throat: Yes tonsils normal Eyes Conjunctivae: conjunctivae normal Pupils: Equal, round and reactive pupils present and Pupil accommodation reflex normal Direct Ophthalmoscopy: normal light reflex Neck Neck: No lymphadenopathy Thyroid: Thyroid normal Chest Chest palpation & inspection: normal inspection of the chest Resp Effort & Inspection: normal respiratory effort and no audible wheezes Auscultation: clear to auscultation bilaterally, no crackles, no wheezes and lung sounds not diminished Cardio Rate: regular rate Rhythm: regular rhythm Peripheral pulses: radial pulses present and dorsalis pedis present GI Palpation (GI): no masses Auscultation: normal bowel sounds and normoactive bowel sounds Rectal Exam - Female: deferred Skin General skin exam: no rashes or lesions noted Rashes: no rashes Neuro General: No confusion Cranial nerves: Yes Equal, round and reactive pupils present and Yes Normal hearing present Cognition (Neuro): normal cognition Gait exam (Neuro): Normal gait present Motor exam (neuro): 5/5 motor strength present throughout Deep tendon reflexes (DTR's): Right brachioradialis reflex intensity grade: 2+, Left brachioradialis reflex intensity grade: 2+, Right patellar reflex intensity grade: 2+ and Left patellar reflex intensity grade: 2+ Extrem General: No edema Assessment and Plan Assessment & Plan (1) Annual physical exam: Code(s): Z00.00 - Encounter for general adult medical examination without abnormal findings (2) Status post sleeve gastrectomy: Comment: Dr. Bustillos 04/12/2022 Code(s): Z90.3 - Acquired absence of stomach [part of] Plan: Patient continues to follow-up with the bariatric surgeon advised increase activity (3) Primary thyroid cancer: Comment: Ablation done Dr. Ericka Nava 11/2020, thyroidectomy 2020 Code(s): C73 - Malignant neoplasm of thyroid gland Plan: Status post thyroidectomy 2020 continue to follow up with endocrinology (4) Post-surgical hypothyroidism: Code(s): E89.0 - Postprocedural hypothyroidism Plan: Continue with present thyroid medication keep TSH low (5) GERD (gastroesophageal reflux disease): Code(s): K21.9 - Gastro-esophageal reflux disease without esophagitis Qualifiers: Esophagitis presence: without esophagitis Qualified Code(s): K21.9 - Gastro-esophageal reflux disease without esophagitis Plan: Avoid the foods that causes that usually spicy foods, tomato products, juices, coffee, soda and foods that your sensitive to. After eating do not lie down, allow 3-4 hours before in lie down. And keep the head of bed above 30 degrees to avoid the acid from going up. (6) Breast cancer screening: Code(s): Z12.39 - Encounter for other screening for malignant neoplasm of breast (7) Trigger finger: Comment: R 4th finger Code(s): M65.30 - Trigger finger, unspecified finger (8) Abdominal hernia: Comment: lower abdominal (from CS 2018) Code(s): K46.9 - Unspecified abdominal hernia without obstruction or gangrene Coding Level of Care Code Est Pt Level 4 (08889) Diagnoses Annual physical exam Z00.00 Status post sleeve gastrectomy Z90.3 Primary thyroid cancer C73 Post-surgical hypothyroidism E89.0 Gastroesophageal reflux disease without esophagitis K21.9 Esophagitis presence: without esophagitis Breast cancer screening Z12.39 Trigger finger M65.30 Abdominal hernia K46.9
== END 2023-05-14 17:12 | disposition home or self-care (01) ==
PROVIDERS: Visit Provider Internal Medicine
DX: Z00.00 Encounter for general adult medical examination without abnormal findings (principal); Z90.3 Acquired absence of stomach [part of]; C73 Malignant neoplasm of thyroid gland; E89.0 Postprocedural hypothyroidism; K21.9 Gastro-esophageal reflux disease without esophagitis; Z12.39 Encounter for other screening for malignant neoplasm of breast; M65.30 Trigger finger, unspecified finger; K46.9 Unspecified abdominal hernia without obstruction or gangrene
CPT/HCPCS: 99214

== ENCOUNTER 2023-11-01 09:33 | Outpatient (REF) | payer OTHER, SELFPAY ==
[2023-11-01 11:57] LABS: Thyroid Stimulating Hormone 0.76 uIU/mL (0.32-4.0)
== END 2023-11-01 09:34 | disposition home or self-care (01) ==
LOC: HO.LAB 09:33
PROVIDERS: PCP Internal Medicine; Visit Provider Internal Medicine Endocrinology, Diabetes & Metabolism
DX: Z08 Encounter for follow-up examination after completed treatment for malignant neoplasm (principal); Z85.850 Personal history of malignant neoplasm of thyroid
CPT/HCPCS: 36415; 84439; 84443

== ENCOUNTER 2023-11-13 08:37 | Outpatient (AMB) | payer OTHER, SELFPAY ==
[2023-11-13 08:38] VITALS: BP 118/76; PULSE 54; O2SAT 99; BMI 34.2
--- NOTE | 2023-11-13 08:38 | MHC.PC.OV ---
Vital Signs 11/13/23 08:38 Height 5 ft 4 in Weight 199 lb 0.4 oz BMI 34.2 BP 118/76 Blood Pressure Location Lt brachial Position Sitting Pulse 54 Pulse Source Pulse Oximeter Pulse Oximetry (%) 99 Oxygen Delivery Method Room Air Intake Visit Reasons: hypothyroid Allergies erythromycin base Allergy (Unknown, Verified 11/13/23 08:39) Stomach Upset Tobacco use date assessed: 11/13/23 Dental Screening Dental Screen Date: 11/13/23 Did you have a dental visit in the last 12 months?: Yes Did you have a dental problem in the last 6 months where you did not have access to dental care?: No Was dental information given to patient?: Patient has dentist HPI hypothyroid HPI Details 43-year-old obese female with status post sleeve gastrectomy history of thyroid cancer now hypothyroid GERD coming in for follow-up last seen in 05/06/2023. PAtient will be going to [facility] for the endo. noted tsh in the normal range but was told before tsh should be lower due to cancer hx. November 29, 2023. aware of weight gain but states muscle mass is increase [facility] Medical History (Updated 11/13/23 @ 08:57 by Aman Mcnally MD) Breast cancer screening History of thyroid cancer Preop exam for internal medicine Contusion of foot, right Cervical lymphadenopathy Vitamin D deficiency Hoarseness Eczema Morbid obesity due to excess calories Primary thyroid cancer Ventral hernia Umbilical hernia Distal radius fracture, left Heart murmur Anxiety GERD (gastroesophageal reflux disease) Anemia Obesity Post-surgical hypothyroidism Non-toxic multinodular goiter Surgical History Hx of gastric bypass Carpal tunnel syndrome History of thyroidectomy Hx of section Hx of tonsillectomy Family History Father No problems noted. Mother No problems noted. Daughter No problems noted. Daughter No problems noted. Daughter No problems noted. Daughter No problems noted. Paternal Grandfather Penile cancer Social History (Updated 05/14/23 @ 16:53 by Aman Mcnally MD) Housing: House Alcohol intake: current Alcohol intake frequency: holidays/special occasions only Comment: once a year 2 drinks Patient Tobacco Use Status: Former Tobacco user Tobacco use type: Cigarette Years Smoked: quit 2005 2 years e-Cigarette/Vaping Use: Never Used Second Hand Smoke Exposure: No service: No Current occupational status: employed Cognitive needs: No Hearing needs: No Vision needs: No Questionnaire Thrive Questionnaire Date Thrive assessed: 11/13/23 I am a: Patient What is your living situation today?: I have a steady place to live Within the past 12 months, did the food you bought not last and you didn't have the money to get more?: Never true Within the past 12 months, did you worry whether your food would run out before you got money to buy more?: Never true Do you have trouble paying for medicines?: No Do you have trouble getting transportation to medical appointments?: No Do you have trouble paying your heating and electricity bill?: No Do you have trouble taking care of your child, family member or friend?: No Do you have trouble with day-to-day activities such as bathing, preparing meals, shopping, managing finances, etc.?: No Are you currently unemployed and looking for a job?: No Are you interested in more education?: No Please select the resources that you would like help with: None Currently or been in a relationship where the following occur: no concerns reported THRIVE Score: 0 AUDIT C Alcohol Use Questionnaire (AUDIT-C) 1. How often do you have a drink containing alcohol?: 2-3 times a week 2. How many drinks containing alcohol do you have on a typical day when you are drinking?: 3 or 4 3. How often do you have six or more drinks on one occasion?: Never Total Score: 4 JOANNE-7 AMB Questionnaire JOANNE-7 Date JOANNE - 7 assessed: 11/13/23 Source: Developed by Drs. Rene Pedro, Brandi Pascual, Arash Campuzano and colleagues, with an educational rhett from [employer]. Physical exam (Primary Care) Vital Signs: Last Vital Signs Pulse 54 11/13/23 08:38 BP 118/76 11/13/23 08:38 Pulse Ox 99 11/13/23 08:38 Oxygen Delivery Method Room Air 11/13/23 08:38 BMI result Body Mass Index 34.2 Tobacco/Smoking Status: Tobacco use Status Tobacco use date assessed 11/13/23 11/13/23 08:44 Patient Tobacco Use Status Former Tobacco user 11/13/23 08:44 Tobacco use type Cigarette 11/13/23 08:44 e-Cigarette/Vaping Use Never Used 11/13/23 08:44 Thrive Assessment: Date of Thrive Assessment Date Thrive assessed 11/13/23 11/13/23 08:44 Currently or been in a relationship where the following occur: no concerns reported Const General: alert; No acute distress Eyes Conjunctivae: conjunctivae normal Resp Auscultation: clear to auscultation bilaterally Cardio Rate: regular rate Rhythm: regular rhythm GI Inspection: Yes normal to inspection Extrem General: Yes normal to inspection and No edema Assessment and Plan Assessment & Plan (1) Primary thyroid cancer: Comment: Ablation done Dr. Ericka Nava 11/2020, thyroidectomy 2020 Code(s): C73 - Malignant neoplasm of thyroid gland Plan: Thyroid tested recently within normal limits thyroid ultrasound results pending (2) Obesity: Code(s): E66.9 - Obesity, unspecified Qualifiers: Body mass index: BMI 50.0-59.9 Obesity classification: adult class 3 (BMI >= 40) Obesity type: due to excess calories Serious obesity comorbidity presence: with serious comorbidity Qualified Code(s): E66.01 - Morbid (severe) obesity due to excess calories; Z68.43 - Body mass index [BMI] 50.0-59.9, adult Plan: Diet and exercise follow-up with bariatric surgeon (3) Status post sleeve gastrectomy: Comment: Dr. Bustillos 04/12/2022 Code(s): Z90.3 - Acquired absence of stomach [part of] Plan: Continue to follow-up with bariatric surgeon (4) Post-surgical hypothyroidism: Code(s): E89.0 - Postprocedural hypothyroidism Plan: TSH blood work tested continue with present thyroid dose. (5) Generalized anxiety disorder: Code(s): F41.1 - Generalized anxiety disorder Plan: Continue with sertraline Coding Level of Care Code Est Pt Level 4 (31583) Complex EM visit Add On G2211 Diagnoses Primary thyroid cancer C73 Class 3 severe obesity due to excess calories with serious comorbidity and body mass index (BMI) of 50.0 to 59.9 in adult E66.01; Z68.43 Body mass index: BMI 50.0-59.9 Obesity classification: adult class 3 (BMI >= 40) Obesity type: due to excess calories Serious obesity comorbidity presence: with serious comorbidity Status post sleeve gastrectomy Z90.3 Post-surgical hypothyroidism E89.0 Generalized anxiety disorder F41.1
== END 2023-11-13 09:15 | disposition home or self-care (01) ==
PROVIDERS: PCP Internal Medicine; Visit Provider Internal Medicine
DX: C73 Malignant neoplasm of thyroid gland (principal); E66.01 Morbid (severe) obesity due to excess calories; Z68.43 Body mass index [BMI] 50.0-59.9, adult; Z90.3 Acquired absence of stomach [part of]; E89.0 Postprocedural hypothyroidism; F41.1 Generalized anxiety disorder
CPT/HCPCS: 99214; G2211

== ENCOUNTER 2023-12-16 12:45 | Outpatient (AMB) | payer OTHER, SELFPAY ==
--- NOTE | 2023-12-16 12:46 | A.OFFVIS_ITS ---
Vital Signs 12/16/23 12:47 Height 5 ft 4 in Weight 196 lb 3.382 oz BMI 33.7 BP 92/62 Blood Pressure Location Lt brachial Position Sitting Pulse 90 Pulse Source Pulse Oximeter Intake Visit Reasons: F/u Thyroid Cancer-confirmed Intake Note: Patient present today for thyroid cancer follow up visit. 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 She was previously followed by Dr. Barnett. and Dr. Phelps She has a history of hypothyroidism and underwent a thyroid US which revealed a multinodular thyroid. FNA biopsy was suspicious for PTC, so she was referred for a total thyroidectomy. She underwent a total thyroidectomy by Dr. Rand 08/17/2020, Official surgical pathology revealed 3 foci of PTC, 1.6 cm and 0.1 cm in L lobe, and 1.2 cm in the R lobe. This was conventional type, with focal tall cell features (<30%). There was no angioinvasion, no lymphatic invasion and no perineural invasion. There was focal extrathyroidal invsaion visualized. 1/6 lymph nodes were positive for thyroid cancer. [id number]. She underwent thyrogen stimulated adjuvant treatment 11/30/2020 with 99.5 mCi of I131. Her Stimulated labs 11/30/2020 TSH 60.29, TG 0.5 and TgAb <1. Her WBS completed 12/09/2020 revealed only physiologic uptake. She had labs repeated 05/01/2021 with TSH 0.57, TG 0.1 and TgAb <1. She had an US of the head and neck completed 05/31/2021 which revealed 2 abnormal appearing lymph nodes, a right level 2 1.7 cm and a left level 5A 1.9 cm cervical lymph node. She underwent FNA biopsy of these lymph nodes 07/10/2021 both with no evidence of malignancy, and both with negative thyroglobulin washout. She then underwent a thyrogen stimulated WBS 12/09/2021 which revealed intense uptake at the R level 2A level, with SPECT CT revealing 2 lymph nodes in that region measuring 7 mm and 8 mm respectively. Uptake was otherwise physiologic. 12/08/2021 with TSH 73.11, TG <0.1 and TGAB <1. Labs repeated again 06/27/2022 with TSH suppressed. Her dose of levothyroxine was decreased to 125 mcg PO daily at that time. She did undergo an US head and neck 06/20/2022 that was read as having multiple abnormal appearing lymph nodes. I repeated this myself 09/2022 and noted no abnormal appearing lymph nodes. She reports feeling well, other than fatigue. She has 4 young children at home and her is often working away from home. She does have a Family History of thyroid cancer in her cousin. US Head and Neck: 06/20/2022 FINDINGS: THYROID BED: Prior thyroidectomy. No residual thyroid tissue demonstrated in the thyroid bed. No cystic or solid nodules demonstrated in the thyroid bed. RIGHT NECK SOFT TISSUES: In addition to the previously seen normal right-sided lymph nodes there is a new abnormal-appearing 1.5 x 0.6 x 0.8 cm right level 2 lymph node. The largest nodes are as follows: Level 2: 1.5 x 0.6 x 0.8 cm.? Abnormal appearance with absence of the central fatty hilum. Level 3: 1.6 x 0.3 x 0.6 cm.? Normal fei architecture. Unchanged from prior study. LEFT NECK SOFT TISSUES: In addition to the previously seen normal left-sided lymph nodes there is a there is an abnormal appearing left level 3 lymph node and a new left level 4 lymph node The largest nodes are as follows: Level 1B: 1.7 x 0.5 x 0.6 cm.? This is new from the prior study but has normal fei architecture Level 3: 1.6 x 0.5 x 1.2 cm.? This has an abnormal appearance with an absent fatty hilum. Level 4: 1.4 x 0.2 x 0.7 cm.? This is new from prior study but has a normal fei architecture. Labs: Laboratory Tests 10/08/22 10/08/22 15:25 15:25 TSH 0.05 L Free T4 1.08 Thyroglobulin <0.1 Thyroglobulin Antibody <[address] Fowler . Saw reactive LN .Dr. Fowler is geeing scans from [facility] Medical History (Updated 11/13/23 @ 08:57 by Aman Mcnally MD) Breast cancer screening History of thyroid cancer Preop exam for internal medicine Contusion of foot, right Cervical lymphadenopathy Vitamin D deficiency Hoarseness Eczema Morbid obesity due to excess calories Primary thyroid cancer Ventral hernia Umbilical hernia Distal radius fracture, left Heart murmur Anxiety GERD (gastroesophageal reflux disease) Anemia Obesity Post-surgical hypothyroidism Non-toxic multinodular goiter Surgical History Hx of gastric bypass Carpal tunnel syndrome History of thyroidectomy Hx of section Hx of tonsillectomy Family History Father No problems noted. Mother No problems noted. Daughter No problems noted. Daughter No problems noted. Daughter No problems noted. Daughter No problems noted. Paternal Grandfather Penile cancer Social History (Updated 05/14/23 @ 16:53 by Aman Mcnally MD) Housing: House Alcohol intake: current Alcohol intake frequency: holidays/special occasions only Comment: once a year 2 drinks Patient Tobacco Use Status: Former Tobacco user Tobacco use type: Cigarette Years Smoked: quit 2005 2 years e-Cigarette/Vaping Use: Never Used Second Hand Smoke Exposure: No service: No Current occupational status: employed Cognitive needs: No Hearing needs: No Vision needs: No Physical Exam Vital Signs: Last Vital Signs Pulse 90 12/16/23 12:47 BP 92/62 12/16/23 12:47 BMI result Body Mass Index 33.7 Const Other: Healed scar status post thyroidectomy. 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 She has had undetectable thyroglobulin and neck ultrasound performed by Dr. Phelps showed no evidence of abnormal lymph nodes recently. She appears to Be clinically biochemically euthyroid thyroglobulin remains undetectable Will continue levothyroxine 125 mcg.. Will try to obtain Dr. Fowler's notes. . Will have patient follow up with Dr. Almanza when she began seeing patients in January Coding Level of Care Code Est Pt Level 3 (84443) Diagnoses History of thyroid cancer Z85.850
[2023-12-16 12:47] VITALS: BP 92/62; PULSE 90; BMI 33.7
== END 2023-12-16 13:11 | disposition home or self-care (01) ==
PROVIDERS: PCP Internal Medicine; Visit Provider Internal Medicine Endocrinology, Diabetes & Metabolism
DX: Z85.850 Personal history of malignant neoplasm of thyroid (principal)
CPT/HCPCS: 99213

== ENCOUNTER → 2023-12-16 12:45 | Outpatient (BNVA) | payer OTHER, SELFPAY | PROVIDERS: PCP Internal Medicine; Visit Provider Internal Medicine Endocrinology, Diabetes & Metabolism | DX: E89.0 Postprocedural hypothyroidism (principal); Z85.850 Personal history of malignant neoplasm of thyroid | CPT/HCPCS: 99212 ==

== ENCOUNTER 2024-04-01 08:01 | Outpatient (AMB) | payer OTHER, SELFPAY ==
--- NOTE | 2024-04-01 08:33 | MHC.PC.OV ---
Vital Signs 04/01/24 08:34 Height 5 ft 4 in Weight 200 lb 0.4 oz BMI 34.3 BP 114/82 Blood Pressure Location Lt brachial Position Sitting Pulse 52 Pulse Source Pulse Oximeter Pulse Oximetry (%) 96 Oxygen Delivery Method Room Air Intake Visit Reasons: hypothyroid Allergies erythromycin base Allergy (Unknown, Verified 04/01/24 08:45) Stomach Upset Tobacco use date assessed: 11/13/23 Dental Screening Dental Screen Date: 11/13/23 HPI hypothyroid HPI Details 68-year-old male smoker with a history of hepatocellular carcinoma with portal vein thrombosis on anticoagulation has esophageal varices hypertension hypothyroidism GERD and generalized anxiety disorder coming in for follow-up. Last seen in September 2023. Review of the notes has been going to the outpatient psychiatric center for evaluation and further management. Patient has major depression current with generalized anxiety on buspirone 15 mg twice a day duloxetine 60 mg once a day mirtazapine 15 mg at bedtime blood work done in September showing mild anemia at 12.9 with mild thrombocytopenia at 146, blood sugar at 110 noted ferritin to be 25 mildly low mildly elevated liver function test elevated cholesterol at 152 elevated TSH. Did see [place] and had blood [facility] (Updated 04/01/24 @ 08:59 by Aman Mcnally MD) Obesity Morbid obesity due to excess calories BMI 45.0-49.9, adult Breast cancer screening History of thyroid cancer Preop exam for internal medicine Contusion of foot, right Cervical lymphadenopathy Vitamin D deficiency Hoarseness Eczema Primary thyroid cancer Ventral hernia Umbilical hernia Distal radius fracture, left Heart murmur Anxiety GERD (gastroesophageal reflux disease) Anemia Post-surgical hypothyroidism Non-toxic multinodular goiter Surgical History Hx of gastric bypass Carpal tunnel syndrome History of thyroidectomy Hx of section Hx of tonsillectomy Family History Father No problems noted. Mother No problems noted. Daughter No problems noted. Daughter No problems noted. Daughter No problems noted. Daughter No problems noted. Paternal Grandfather Penile cancer Social History Housing: House Alcohol intake: current Alcohol intake frequency: holidays/special occasions only Comment: once a year 2 drinks Patient Tobacco Use Status: Former Tobacco user Tobacco use type: Cigarette Years Smoked: quit 2005 2 years e-Cigarette/Vaping Use: Never Used Second Hand Smoke Exposure: No service: No Current occupational status: employed Cognitive needs: No Hearing needs: No Vision needs: No Questionnaire Thrive Questionnaire Date Thrive assessed: 11/13/23 Are you currently unemployed and looking for a job?: No AUDIT C Alcohol Use Questionnaire (AUDIT-C) 1. How often do you have a drink containing alcohol?: 2-3 times a week 2. How many drinks containing alcohol do you have on a typical day when you are drinking?: 3 or 4 3. How often do you have six or more drinks on one occasion?: Never Total Score: 4 JOANNE-7 AMB Questionnaire JOANNE-7 Date JOANNE - 7 assessed: 11/13/23 Source: Developed by Drs. Rene Pedro, Brandi Pascual, Arash Campuzano and colleagues, with an educational rhett from [employer]. Physical exam (Primary Care) Vital Signs: Last Vital Signs Pulse 52 04/01/24 08:34 BP 114/82 04/01/24 08:34 Pulse Ox 96 04/01/24 08:34 Oxygen Delivery Method Room Air 04/01/24 08:34 BMI result Body Mass Index 34.3 Tobacco/Smoking Status: Tobacco use Status Tobacco use date assessed 11/13/23 04/01/24 08:37 Patient Tobacco Use Status Former Tobacco user 04/01/24 08:37 Tobacco use type Cigarette 04/01/24 08:37 e-Cigarette/Vaping Use Never Used 04/01/24 08:37 Thrive Assessment: Date of Thrive Assessment Date Thrive assessed 11/13/23 04/01/24 08:37 Const General: alert; No acute distress Eyes Conjunctivae: conjunctivae normal Resp Auscultation: clear to auscultation bilaterally Cardio Rate: regular rate Rhythm: regular rhythm GI Inspection: Yes normal to inspection Extrem General: Yes normal to inspection and No edema Office Procedures Flu Questionnaire Does the patient have a severe egg allergy?: No Does the patient have severe life threatening allergies?: No Does the patient have a fever or illness today?: No Has the patient ever had Guillain-Apex Syndrome?: No Has the patient ever had any past reaction to a flu shot?: No Immunizations Fluarix Triv [id number] (PF) 45 mcg (15 mcg x 3)/0.5 mL IM syringe Performing Provider: Aman Mcnally MD [facility] [place] [facility] Administered by: QUENTIN Lucas on 04/01/24 08:44 Dose Route Admin Location Dispensed Lot Number Expiration Date NDC [employer]er 0.5 mL IM Left Deltoid 0.5 mL [id number] 12/14/24 [id number] [employer] VIS Given Date VIS Provided VIS Publication Date 04/01/24 Single Vaccine 21 Eligibility Eligibility Date Funding Source Not [facility] Eligible 04/01/24 Private Coding Level of Care Code Est Pt Level 4 (06193) Diagnoses Status post sleeve gastrectomy Z90.3 Obesity (BMI 30-39.9) E66.9 Primary thyroid cancer C73 Post-surgical hypothyroidism E89.0 Gastroesophageal reflux disease without esophagitis K21.9 Esophagitis presence: without esophagitis Generalized anxiety disorder F41.1 Assessment & Plan Assessment & Plan (1) Status post sleeve gastrectomy: Comment: Dr. Bustillos 04/12/2022 Code(s): Z90.3 - Acquired absence of stomach [part of] Category: Surgical Plan: Continue to follow-up with bariatric surgery (2) Obesity (BMI 30-39.9): Code(s): E66.9 - Obesity, unspecified Category: Medical Plan: Diet and exercise (3) Primary thyroid cancer: Comment: Ablation done Dr. Ericka Nava 11/2020, thyroidectomy 2020 Code(s): C73 - Malignant neoplasm of thyroid gland Category: Medical Plan: Patient follows up with endocrinology under surveillance presently (4) Post-surgical hypothyroidism: Code(s): E89.0 - Postprocedural hypothyroidism Category: Medical Plan: Continue with thyroid medication and will need blood work (5) GERD (gastroesophageal reflux disease): Code(s): K21.9 - Gastro-esophageal reflux disease without esophagitis Category: Medical Qualifiers: Esophagitis presence: without esophagitis Qualified Code(s): K21.9 - Gastro-esophageal reflux disease without esophagitis Plan: Avoid the foods that causes that usually spicy foods, tomato products, juices, coffee, soda and foods that your sensitive to. After eating do not lie down, allow 3-4 hours before in lie down. And keep the head of bed above 30 degrees to avoid the acid from going up. (6) Generalized anxiety disorder: Code(s): F41.1 - Generalized anxiety disorder Category: Medical Plan: Discussion about counseling and therapy Orders: Orders Influenza [id number] Immunization Today Z23 - Encounter for immunization Complete Blood Count Auto Diff 4 Months E89.0 - Postprocedural hypothyroidism Comprehensive Met. Panel 4 Months E89.0 - Postprocedural hypothyroidism Free T4 (Free Thyroxine) 4 Months E89.0 - Postprocedural hypothyroidism Thyroid Stimulating Hormone 4 Months E89.0 - Postprocedural hypothyroidism Lipid Panel 4 Months E78.00 - Pure hypercholesterolemia, unspecified, E89.0 - Postprocedural hypothyroidism Vitamin B12 and Folate 4 Months E89.0 - Postprocedural hypothyroidism Vitamin D 25-OH Total 4 Months E89.0 - Postprocedural hypothyroidism Hemoglobin A1c 4 Months E89.0 - Postprocedural hypothyroidism
[2024-04-01 08:34] VITALS: BP 114/82; PULSE 52; O2SAT 96; BMI 34.3
== END 2024-04-01 09:08 | disposition home or self-care (01) ==
PROVIDERS: PCP Internal Medicine; Visit Provider Internal Medicine
DX: E89.0 Postprocedural hypothyroidism (principal); E66.9 Obesity, unspecified; Z68.34 Body mass index [BMI] 34.0-34.9, adult; C73 Malignant neoplasm of thyroid gland; Z90.3 Acquired absence of stomach [part of]; K21.9 Gastro-esophageal reflux disease without esophagitis; F41.1 Generalized anxiety disorder

== ENCOUNTER → 2024-04-01 08:01 | Outpatient (BNVA) | payer OTHER, SELFPAY | PROVIDERS: PCP Internal Medicine; Visit Provider Internal Medicine | DX: Z23 Encounter for immunization (principal); Z90.3 Acquired absence of stomach [part of]; E66.9 Obesity, unspecified; C73 Malignant neoplasm of thyroid gland; E89.0 Postprocedural hypothyroidism; K21.9 Gastro-esophageal reflux disease without esophagitis; F41.1 Generalized anxiety disorder | CPT/HCPCS: 90471; 90656; 99212 ==

== ENCOUNTER 2024-04-17 08:04 | Outpatient (AMB) | payer OTHER, SELFPAY ==
--- NOTE | 2024-04-17 08:08 | A.OFFVIS_ITS ---
Vital Signs 3 04/17/24 08:09 Height 5 ft 4 in Weight 203 lb 0.732 oz BMI 34.8 BP 118/84 Blood Pressure Location Lt brachial Position Sitting Pulse 84 Pulse Source Pulse Oximeter Intake Visit Reasons: F/u thyroid cancer-lvm Intake Note: Patient present today for thyroid cancer follow up visit. Analysis Internship Required: No Accompanied by: Self / Same As Patient Allergies erythromycin base Allergy (Unknown, Verified 04/17/24 08:14) Stomach Upset Medication List - Last Reconciled 04/17/24 by Charlotte Almanza MD [BARIATRIC VITAMINS 1 cap PO .QD] calcium 26-vit D3-magnesium 15 167 mg calcium- 1.67 mcg-83 mg caps PO .QD levothyroxine 125 mcg PO DAILY sertraline 50 mg PO DAILY 90 days HPI Comments Details: 43-year-old female coming in today for follow up status post total thyroidectomy with central compartment lymph node dissection 08/17/2020 multifocal bilateral papillary thyroid cancer with largest focus 1.6 cm (conventional with focal tall cell features), no AI/LI, positive focal ETE, negative margins but close, with a 1/6 lymph nodes positive for metastatic disease, (AJCC stage I pT1b N1a, PRASHANT intermediate risk for recurrence) and I 131 adjuvant treatment 11/30/2020 with 99.5 mCi with Thyrogen stimulation. Currently PRASHANT excellent response to therapy. 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 07/14/2020: FNA biopsy of bilateral nodules with suspicious for PTC so she was referred for total thyroidectomy. 08/17/2020: Underwent total thyroidectomy with Dr. Дмитрий Rand at [facility], official surgical pathology revealed 3 foci of PTC, 1.6 cm and 0.1 cm in the left lobe and 1.2 cm in the right lobe. This was conventional type with focal tall cell features. No angioinvasion, lymphatic invasion or perineural invasion. Focal extrathyroidal invasion is seen, negative margins but focally very close (less than 0.05 cm, left lobe anterior peripheral margin). 1/6 lymph nodes positive for metastatic disease. 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 AJCC stage 1, pT1b N1a, PRASHANT intermediate risk of recurrence. 11/30/2020: Underwent Thyrogen stimulated adjuvant treatment with 99.5 mCi of I 131. 11/30/2020: Stimulated labs TSH 60.29, TG 0.5, TG antibody less than 1 12/09/2020: Whole-body scan revealed only physiologic uptake 05/01/2021: Repeat labs TSH 0.57, TG 0.1, TG antibody less than 1 05/31/2021: Ultrasound head and neck reveal 2 abnormal-appearing lymph nodes, a right level 2, 1.7 cm and a left level 5A 1.9 cm cervical lymph node. 07/10/2021: FNA biopsy of both of these with no evidence of malignancy, both with negative thyroglobulin washout 12/09/2021: Whole-body scan with Thyrogen stimulation revealed intense uptake at the right level 2A level with a PET-CT revealing 2 lymph nodes in that region measuring 7 mm and 8 mm respectively. Uptake was otherwise physiologic. 12/08/2021: Labs with TSH 73.11, TG less than 0.1, TG antibody less than 1 01/02/2022: Ultrasound head and neck showed abnormal-appearing right level lymph nodes largest 1 at level 3 measuring 1.5 cm., left level 3, 1.7 cm lymph node without hilar architecture by the otherwise looking normal. 06/27/2022: Labs again repeated with suppressed TSH. 06/20/2022 ultrasound head and neck read as having multiple abnormal-appearing lymph nodes. Right level 2, 1.5 cm abnormal-appearing lymph node, left level 3, 1.6 cm abnormal-appearing lymph node without a hilum September 2022: Dr. Phelps repeated the ultrasound herself and noted no abnormal lymph nodes. November 2023: Did in office US which I verified on her phone from Dr. Fowler's office note dated 11/29/23 she did not see any abnormal lymph nodes, saw multiple reactive lymph nodes , I dont see the official report in the system. 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 Currently on levothyroxine 125 mcg Daily, taking it appropriately, adherent to therapy. 11/29/23 Tg Ab <0.4 Tg <0.10 TSH 1.03 free T4 1.17 Weight is stable. Bowel movements are regular. No tremors. No palpitations. Physical exam General: sitting comfortably in no acute distress HEENT: normocephalic/atraumatic, , moist oral mucosa Neck: supple, symmetrical, no palpable lymph nodes, no dorsocervical or supraclavicular fat pads Cardiac: normal heart sounds Pulm: normal breath sounds B/L, no added breath sounds Abd: not distended, no tenderness Extremities: no edema, no signs of myxedema Neuro: AAO x3, Speech: normal, no facial droop, moving all 4 extremities Laboratory Tests 03/20/18 04/30/18 05/07/19 12:48 06:45 15:13 Free T4 0.63 L 0.82 0.99 TSH Thyroglobulin Thyroglobulin Antibody 05/20/20 07/13/20 07/20/20 13:06 14:46 13:05 Free T4 0.94 1.05 TSH 0.99 3.61 2.81 Thyroglobulin Thyroglobulin Antibody <1 10/13/20 11/30/20 12/24/20 07:56 08:00 09:37 Free T4 1.01 1.30 1.13 TSH 0.05 L 60.29 H 0.03 L Thyroglobulin 0.5 H 0.5 H <0.1 Thyroglobulin Antibody <1 <1 <1 03/03/21 05/01/21 10/06/21 07:52 07:52 14:20 Free T4 1.09 0.98 1.09 TSH 0.22 L 0.57 0.14 L Thyroglobulin 0.2 H 0.1 H Thyroglobulin Antibody <1 <1 12/04/21 12/06/21 12/08/21 08:18 09:48 10:13 Free T4 1.07 1.27 1.22 TSH 0.08 L 73.11 H 8.11 H Thyroglobulin <0.1 L <0.1 L <0.1 L Thyroglobulin Antibody <1 <1 <1 01/11/22 02/28/22 06/27/22 14:43 13:12 15:08 Free T4 1.36 1.17 1.20 TSH 0.04 L 0.15 L 0.02 L Thyroglobulin Thyroglobulin Antibody 07/09/22 07/09/22 07/09/22 08:22 08:22 08:22 Free T4 1.21 TSH 0.02 L Thyroglobulin <0.1 <0.1 L Thyroglobulin Antibody <1 <1 10/08/22 11/01/23 15:25 09:46 Free T4 1.08 1.10 TSH 0.05 L 0.76 Thyroglobulin <0.1 Thyroglobulin Antibody <1 LAbs on her phone from Dr. Fowler's office 10/08/22 Tg Ab <1 Tg <0.2 TSH 0.05 Free t4 1.08 11/29/23 Tg Ab <0.4 Tg <0.10 TSH 1.03 free T4 1.17 Imaging US SOFT TISSUE NECK 06/20/22 CLINICAL INFORMATION: Personal history of malignant neoplasm of thyroid. COMPARISON: Ultrasound soft tissue neck 01/02/2022 and 05/31/2021. TECHNIQUE: Ultrasound of the neck soft tissues is performed with high-frequency clements-scale imaging and color Doppler. FINDINGS: THYROID BED: Prior thyroidectomy. No residual thyroid tissue demonstrated in the thyroid bed. No cystic or solid nodules demonstrated in the thyroid bed. RIGHT NECK SOFT TISSUES: In addition to the previously seen normal right-sided lymph nodes there is a new abnormal-appearing 1.5 x 0.6 x 0.8 cm right level 2 lymph node. The largest nodes are as follows: Level 2: 1.5 x 0.6 x 0.8 cm. Abnormal appearance with absence of the central fatty hilum. Level 3: 1.6 x 0.3 x 0.6 cm. Normal fei architecture. Unchanged from prior study. LEFT NECK SOFT TISSUES: In addition to the previously seen normal left-sided lymph nodes there is a there is an abnormal appearing left level 3 lymph node and a new left level 4 lymph node The largest nodes are as follows: Level 1B: 1.7 x 0.5 x 0.6 cm. This is new from the prior study but has normal fei architecture Level 3: 1.6 x 0.5 x 1.2 cm. This has an abnormal appearance with an absent fatty hilum. Level 4: 1.4 x 0.2 x 0.7 cm. This is new from prior study but has a normal fei architecture. US/US soft tiss head and/or neck IMPRESSION: 1. New and abnormal bilateral cervical lymph nodes are noted as described above. 2. If clinically indicated further evaluation of the neck soft tissues and nodes may be performed with CT soft tissue neck with intravenous contrast. US SOFT TISSUE NECK 01/02/22 CLINICAL INFORMATION: Enlarged lymph nodes., Iodine uptake on the right at level 2 COMPARISON: Ultrasound biopsy lymph node 07/10/2021. Ultrasound thyroid 06/13/2020. TECHNIQUE: Ultrasound of the neck soft tissues is performed with high- frequency clements-scale imaging and color Doppler. FINDINGS: THYROID BED: Prior thyroidectomy. No residual thyroid tissue demonstrated in the thyroid bed. No cystic or solid nodules demonstrated in the thyroid bed. RIGHT NECK SOFT TISSUES: Scattered architecturally normal nodes are present. The nodes show normal fatty hilus, normal cortical thickness, and no cystic change or calcification. No abnormal color flow. The largest nodes are as follows: Level 1B: 1.0 x 0.5 x 1.0 cm, not significantly changed previously 0.9 x 0.5 x 0.9 cm. Normal fei architecture. Level 3: 1.5 x 0.3 x 0.6 cm, previously 1.5 x 0.3 x 0.8 cm. Not significantly changed in size. Normal fei architecture. LEFT NECK SOFT TISSUES: Scattered architecturally normal nodes are present. The nodes show normal fatty hilus, normal cortical thickness, and no cystic change or calcification. No abnormal color flow. The largest nodes are as follows: Level 2: 1.1 x 0.4 x 1.2 cm, new from prior Normal fei architecture. Level 3: 1.7 x 0.4 x 1.0 cm, new from prior. Hilar architecture was not definitively appreciated however the node demonstrates a new normal oblong morphology, and does not appear rounded. US/US soft tiss head and/or neck IMPRESSION: 1. A 0.4 cm short axis left level 3 node is new from prior. Although hilar architecture was not definitively appreciated node does not demonstrate otherwise abnormal morphology. A 0.4 cm short axis left level 2 node is also new from prior, unremarkable in appearance. 2. A 0.5 cm short axis level 1B node and a 0.3 cm short axis level 3 node are not significantly changed in size from prior and demonstrate normal architecture. No new suspicious right cervical nodes. 3. If clinically indicated further evaluation of the neck soft tissues and nodes may be performed with CT soft tissue neck with intravenous contrast. US SOFT TISSUE NECK 05/31/21 CLINICAL INFORMATION: Post thyroidectomy August 2020. History of papillary thyroid cancer. COMPARISON: None TECHNIQUE: Ultrasound of the neck soft tissues is performed with high-frequency clements-scale imaging and color Doppler. FINDINGS: THYROID BED: Prior thyroidectomy. No residual thyroid tissue demonstrated in the thyroid bed. No cystic or solid nodules demonstrated in the thyroid bed. RIGHT NECK SOFT TISSUES: There are 6 right cervical lymph nodes identified. The largest nodes are as follows: Level 2: 1.7 x 0.5 x 1.1 cm. Abnormal fei architecture with slit-like or absent hilum. The remainder of the lymph nodes demonstrate normal ultrasound morphology. The next largest lymph node: Level 3: 1.5 x 0.3 x 0.8 cm. Normal fei architecture. LEFT NECK SOFT TISSUES: There are 6 left cervical lymph nodes identified. The largest nodes are as follows: Level 5A: 1.9 x 0.4 x 1.1 cm. Abnormal architecture with slitlike or absent hilum. The remainder of the lymph nodes demonstrate normal ultrasound morphology. Level 5B: 1.2 x 0.2 x 0.8 cm. Normal fei architecture. Level 2: 1 x 0.5 x 0.8 cm. Normal fei architecture. US/US soft tiss head and/or neck IMPRESSION: No residual thyroid tissue or nodule seen. Bilateral cervical lymph nodes. [facility] Medical History (Updated 04/17/24 @ 08:48 by Charlotte Almanza MD) History of thyroid cancer Obesity Morbid obesity due to excess calories BMI 45.0-49.9, adult Breast cancer screening Preop exam for internal medicine Contusion of foot, right Cervical lymphadenopathy Vitamin D deficiency Hoarseness Eczema Primary thyroid cancer Ventral hernia Umbilical hernia Distal radius fracture, left Heart murmur Anxiety GERD (gastroesophageal reflux disease) Anemia Post-surgical hypothyroidism Non-toxic multinodular goiter Surgical History Hx of gastric bypass Carpal tunnel syndrome History of thyroidectomy Hx of section Hx of tonsillectomy Family History Father No problems noted. Mother No problems noted. Daughter No problems noted. Daughter No problems noted. Daughter No problems noted. Daughter No problems noted. Paternal Grandfather Penile cancer Social History Housing: House Alcohol intake: current Alcohol intake frequency: holidays/special occasions only Comment: once a year 2 drinks Patient Tobacco Use Status: Former Tobacco user Tobacco use type: Cigarette Years Smoked: quit 2005 2 years e-Cigarette/Vaping Use: Never Used Second Hand Smoke Exposure: No service: No Current occupational status: employed Cognitive needs: No Hearing needs: No Vision needs: No Physical Exam Vital Signs: Last Vital Signs Pulse 84 04/17/24 08:09 BP 118/84 04/17/24 08:09 BMI result Body Mass Index 34.8 Assessment & Plan Assessment & Plan (1) History of thyroid cancer: Code(s): Z85.850 - Personal history of malignant neoplasm of thyroid Category: Medical Plan: 43-year-old female coming in today for follow up status post total thyroidectomy with central compartment lymph node dissection 08/17/2020 multifocal bilateral papillary thyroid cancer with largest focus 1.6 cm (conventional with focal tall cell features), no AI/LI, positive focal ETE, negative margins but close, with a 1/6 lymph nodes positive for metastatic disease, (AJCC stage I pT1b N1a, PRASHANT intermediate risk for recurrence) and I 131 adjuvant treatment 11/30/2020 with 99.5 mCi with Thyrogen stimulation. Ultrasound in May 2021 showed of normal-appearing lymph nodes that were biopsied in June 2021 with no evidence of malignancy, thyroglobulin washout was negative. She had a whole-body scan in November 2021 that showed an intensely reactive lymph node at right level 2, this was likely a salivary gland given that she has had negative biopsies before, plus ultrasounds repeated in September [address] Phelps and most recently in November [address] Fowler did not show any abnormal lymph nodes. Per office notes from Dr. Link which the patient showed me on her phone, she only saw a reactive lymph nodes. Her stimulated and non stimulated TG levels have both been undetectable with undetectable TG antibodies. This is very reassuring. She classifies as PRASHANT excellent response to therapy, she is getting some blood work done today so I will repeat her TSH, free T4 as well as TG tumor markers. I will plan to get an ultrasound next year in November 2024 which would be 1 year from her last ultrasound with Dr. Link. We will plan to see her back in December 2024 to discuss results. Given excellent response to therapy, TSH goal is 0.5-2. Plan: -continue levothyroxine 125 mcg daily -ordered TSH, free T4, TG and TG antibodies to be done now -obtain official ultrasound report from Dr. Fowler's office done November 2023 -next ultrasound ordered for November 2024 -we will also plan to repeat labs in November 2024 -follow up with me in December 2024 (2) Post-surgical hypothyroidism: Code(s): E89.0 - Postprocedural hypothyroidism Category: Medical Plan: Given excellent response to therapy, TSH goal is 0.5-2. Plan: -continue levothyroxine 125 mcg daily -ordered TSH, free T4, TG and TG antibodies to be done now Plan I spent 30 minutes in reviewing the record, seeing the patient and documenting in the medical record. Orders: Orders 2 Thyroglobulin Today Z85.850 - Personal history of malignant neoplasm of thyroid Thyroglobulin Antibodies Today Z85.850 - Personal history of malignant neoplasm of thyroid Thyroglobulin Tumor Marker Today Z85.850 - Personal history of malignant neoplasm of thyroid Thyroid Stimulating Hormone Today Z85.850 - Personal history of malignant neoplasm of thyroid Free T4 (Free Thyroxine) Today Z85.850 - Personal history of malignant neoplasm of thyroid US soft tiss head and/or neck 11/16/24 Z85.850 - Personal history of malignant neoplasm of thyroid Medications: Refilled 2 levothyroxine 125 mcg PO DAILY 90 tabs 3RF Patient Instructions: Do lab work today I will inform you about the results through the portal Next US due November 2024 Labs also in November 2024 Follow up with me in December 2024 Coding Level of Care Code Est Pt Level 4 (07994) Complex EM visit Add On G2211 Diagnoses History of thyroid cancer Z85.850 Post-surgical hypothyroidism E89.0 Time Spent (min) 30
[2024-04-17 08:09] VITALS: BP 118/84; PULSE 84; BMI 34.8
== END 2024-04-17 08:57 | disposition home or self-care (01) ==
LOC: HO.ENCR 08:05
PROVIDERS: PCP Internal Medicine; Referring Provider Internal Medicine; Visit Provider Student in an Organized Health Care Education/Training Program
DX: Z85.850 Personal history of malignant neoplasm of thyroid (principal); E89.0 Postprocedural hypothyroidism
CPT/HCPCS: 99214

== ENCOUNTER 2024-04-17 08:04 | Outpatient (REF) | payer OTHER, SELFPAY ==
[2024-04-17 12:02] LABS: Free T4 (Free Thyroxine) 1.08 ng/dL (0.71-1.85); Thyroid Stimulating Hormone 2.17 uIU/mL (0.32-4.0)
[2024-04-18 13:04] LABS: Thyroglobulin <0.1 ng/mL; Thyroglobulin Antibodies <1 IU/mL (< or = 1)
[2024-04-21 05:14] LABS: Thyroglobulin Antibody <1 IU/mL (<=1); Thyroglobulin Level <0.1 ng/mL
== END 2024-04-17 08:05 | disposition home or self-care (01) ==
LOC: HO.LAB 08:04
PROVIDERS: PCP Internal Medicine; Visit Provider Student in an Organized Health Care Education/Training Program
DX: E89.0 Postprocedural hypothyroidism (principal); Z85.850 Personal history of malignant neoplasm of thyroid; Z79.890 Hormone replacement therapy
CPT/HCPCS: 36415; 84432; 84439; 84443; 86800; 99212

== ENCOUNTER 2024-05-19 08:21 | Outpatient (AMB) | payer OTHER, SELFPAY ==
[2024-05-19 08:27] VITALS: BP 130/78; PULSE 56; O2SAT 98; BMI 34.3
--- NOTE | 2024-05-19 08:27 | A.OFFPC_ITS ---
Vital Signs 05/19/24 08:27 Height 5 ft 4 in Weight 200 lb BMI 34.3 BP 130/78 Blood Pressure Location Lt brachial Position Sitting Pulse 56 Pulse Source Pulse Oximeter Pulse Oximetry (%) 98 Oxygen Delivery Method Room Air Intake Visit Reasons: PE Allergies erythromycin base Allergy (Unknown, Verified 05/19/24 08:27) Stomach Upset Medication List - Last Reconciled 05/19/24 by Aman Mcnally MD [BARIATRIC VITAMINS 1 cap PO .QD] calcium 26-vit D3-magnesium 15 167 mg calcium- 1.67 mcg-83 mg caps PO .QD levothyroxine 125 mcg PO DAILY sertraline 50 mg PO DAILY 90 days Tobacco use date assessed: 11/13/23 Dental Screening Dental Screen Date: 11/13/23 HPI PE HPI Details 43-year-old obese female with a history of sleeve gastrectomy primary thyroid cancer (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 Last seen in 04/01/2024. Patient's mammogram is up-to-date September 2023. Review of the notes does blood work in coli [place] April 17 2024 HDL of 63 LDL of 95 tr iglyceride of 89 with a hemoglobin A1c of 5.7. Very high vitamin B12 of 1578 and normal vitamin-D. Electrolytes normal with BUN creatinine normal blood sugar of 87 normal liver function test C-reactive protein elevated 7.3 TSH is normal. ventral hernia - awaiting schedule [facility] Medical History (Updated 05/19/24 @ 08:43 by Aman Mcnally MD) History of thyroid cancer Obesity Morbid obesity due to excess calories BMI 45.0-49.9, adult Breast cancer screening Preop exam for internal medicine Contusion of foot, right Cervical lymphadenopathy Vitamin D deficiency Hoarseness Eczema Primary thyroid cancer Ventral hernia Umbilical hernia Distal radius fracture, left Heart murmur Anxiety GERD (gastroesophageal reflux disease) Anemia Post-surgical hypothyroidism Non-toxic multinodular goiter Surgical History Hx of gastric bypass Carpal tunnel syndrome History of thyroidectomy Hx of section Hx of tonsillectomy Family History (Updated 05/19/24 @ 08:28 by Nasreen Noble STAFF SCIENTIST) Father No problems noted. Mother No problems noted. Daughter No problems noted. Daughter No problems noted. Daughter No problems noted. Daughter No problems noted. Paternal Grandfather Penile cancer Social History Housing: House Alcohol intake: current Alcohol intake frequency: holidays/special occasions only Comment: once a year 2 drinks Patient Tobacco Use Status: Former Tobacco user Tobacco use type: Cigarette Years Smoked: quit 2005 2 years e-Cigarette/Vaping Use: Never Used Second Hand Smoke Exposure: No service: No Current occupational status: employed Cognitive needs: No Hearing needs: No Vision needs: No Questionnaire PHQ-9 Over the last 2 weeks, how often have you been bothered by any of the following problems? 1. Little interest or pleasure in doing things: not at all 2. Feeling down, depressed, or hopeless: not at all 3. Trouble falling or staying asleep, or sleeping too much: not at all 4. Feeling tired or having little energy: not at all 5. Poor appetite or overeating: not at all 6. Feeling bad about yourself - or that you are a failure or have let yourself or your family down: not at all 7. Trouble concentrating on things, such as reading the newspaper or watching television: not at all 8. Moving or speaking so slowly that other people could have noticed. Or the opposite - being so fidgety or restless that you have been moving around a lot more than usual: not at all 9. Thoughts that you would be better off or of hurting yourself in some way: not at all Total score: 0 Depression Screening Interpretation: Negative Depression Screening Done: Yes 57940 - PHQ-9 Billing: Yes Source: Developed by Drs. Rene Pedro, Brandi Pascual, Arash Campuzano and colleagues, with an educational rhett from [email or web address]. Thrive Questionnaire Date Thrive assessed: 05/19/24 I am a: Patient What is your living situation today?: I have a steady place to live Within the past 12 months, did the food you bought not last and you didn't have the money to get more?: Never true Within the past 12 months, did you worry whether your food would run out before you got money to buy more?: Never true Do you have trouble paying for medicines?: No Do you have trouble getting transportation to medical appointments?: No Do you have trouble paying your heating and electricity bill?: No Do you have trouble taking care of your child, family member or friend?: No Do you have trouble with day-to-day activities such as bathing, preparing meals, shopping, managing finances, etc.?: No Are you currently unemployed and looking for a job?: No Are you interested in more education?: No Please select the resources that you would like help with: None Currently or been in a relationship where the following occur: No concerns reported THRIVE Score: 0 AUDIT C Alcohol Use Questionnaire (AUDIT-C) 1. How often do you have a drink containing alcohol?: Monthly or less 2. How many drinks containing alcohol do you have on a typical day when you are drinking?: 1 or 2 3. How often do you have six or more drinks on one occasion?: Never Total Score: 1 JOANNE-7 AMB Questionnaire JOANNE-7 Date JOANNE - 7 assessed: 05/19/24 Feeling nervous, anxious, or on edge: 0 = Not at all Not being able to stop or control worryin = Not at all Worrying too much about different things: 1 = Several days Trouble relaxin = Several days Being so restless that it is hard to sit still: 0 = Not at all Becoming easily annoyed or irritable: 0 = Not at all Feeling afraid as if something awful might happen: 0 = Not at all Total JOANNE-7 score (0-4 normal; 5-9 mild; 10-14 moderate; 15-21 severe): 2 Source: Developed by Drs. Rene Pedro, Brandi Pascual, Arash Campuzano and colleagues, with an educational rhett from [email or web address]. Review of Systems Const Denies poor appetite and Denies weakness Eyes Denies no additional complaints ENT Reports Normal hearing present, Denies dizziness, Denies nasal congestion, Denies tinnitus and Denies sore throat Card Denies chest pain, Denies syncope, Denies rapid heart rate and Denies dyspnea Resp Denies cough and Denies dyspnea GI Denies change in stool character, Reports constipation, Denies diarrhea, Denies nausea and Denies vomiting Denies urinary frequency, Denies difficulty voiding and Denies dysuria Neuro Reports Normal hearing present, Denies confusion, Denies dizziness, Denies syncope and Denies weakness Psych Denies confusion Physical exam (Primary Care) Vital Signs: Last Vital Signs Pulse 56 05/19/24 08:27 BP 130/78 05/19/24 08:27 Pulse Ox 98 05/19/24 08:27 Oxygen Delivery Method Room Air 05/19/24 08:27 BMI result Body Mass Index 34.3 Tobacco/Smoking Status: Tobacco use Status Tobacco use date assessed 11/13/23 05/19/24 08:33 Patient Tobacco Use Status Former Tobacco user 05/19/24 08:33 Tobacco use type Cigarette 05/19/24 08:33 e-Cigarette/Vaping Use Never Used 05/19/24 08:33 PHQ-9: PHQ-9 Score PHQ-9: Total score 0 05/19/24 08:33 Depression Screening Interpretation: Negative Thrive Assessment: Date of Thrive Assessment Date Thrive assessed 05/19/24 05/19/24 08:33 Currently or been in a relationship where the following occur: No concerns reported Const General: No confusion Orientation/consciousness: No confusion HENMT Head: Yes normocephalic Ears: external ears normal and TM's normal bilaterally Face and sinus: Yes normal facial exam Mouth: moist mucous membranes Throat: Yes tonsils normal Eyes Conjunctivae: conjunctivae normal Pupils: Equal, round and reactive pupils present and Pupil accommodation reflex normal Direct Ophthalmoscopy: normal light reflex Neck Neck: No lymphadenopathy Thyroid: Thyroid normal Chest Chest palpation & inspection: normal inspection of the chest Resp Effort & Inspection: normal respiratory effort and no audible wheezes Auscultation: clear to auscultation bilaterally, no crackles, no wheezes and lung sounds not diminished Cardio Rate: regular rate Rhythm: regular rhythm Peripheral pulses: radial pulses present and dorsalis pedis present GI Palpation (GI): no masses Auscultation: normal bowel sounds and normoactive bowel sounds Rectal Exam - Female: deferred Skin General skin exam: no rashes or lesions noted Rashes: no rashes Neuro General: No confusion Cranial nerves: Yes Equal, round and reactive pupils present and Yes Normal hearing present Cognition (Neuro): normal cognition Gait exam (Neuro): Normal gait present Motor exam (neuro): 5/5 motor strength present throughout Deep tendon reflexes (DTR's): Right brachioradialis reflex intensity grade: 2+, Left brachioradialis reflex intensity grade: 2+, Right patellar reflex intensity grade: 2+ and Left patellar reflex intensity grade: 2+ Extrem General: No edema Coding Level of Care Code Est Pt Prev Care 40-64y(35256) Diagnoses Annual physical exam Z00.00 Status post sleeve gastrectomy Z90.3 Obesity (BMI 30-39.9) E66.9 Primary thyroid cancer C73 Post-surgical hypothyroidism E89.0 Gastroesophageal reflux disease without esophagitis K21.9 Esophagitis presence: without esophagitis Generalized anxiety disorder F41.1 Additional Codes PHQ-9 - 88894 - PHQ-9 Billing: Yes ([id number]) Assessment & Plan Assessment & Plan (1) Annual physical exam: Code(s): Z00.00 - Encounter for general adult medical examination without abnormal findings Category: Medical Plan: Patient is advised to eat healthy, keep well hydrated, keep active and have adequate sleep. (2) Status post sleeve gastrectomy: Comment: Dr. Bustillos 04/12/2022 Code(s): Z90.3 - Acquired absence of stomach [part of] Category: Surgical Plan: Continue follow-up with bariatric surgeon (3) Obesity (BMI 30-39.9): Code(s): E66.9 - Obesity, unspecified Category: Medical Plan: Diet and exercise (4) Primary thyroid cancer: Comment: Ablation done Dr. Ericka Nava 11/2020, thyroidectomy 2020 Code(s): C73 - Malignant neoplasm of thyroid gland Category: Medical Plan: Patient follows up with endocrinology and the yearly ultrasound of the thyroid (5) Post-surgical hypothyroidism: Code(s): E89.0 - Postprocedural hypothyroidism Category: Medical Plan: Continue with present thyroid medication (6) GERD (gastroesophageal reflux disease): Code(s): K21.9 - Gastro-esophageal reflux disease without esophagitis Category: Medical Qualifiers: Esophagitis presence: without esophagitis Qualified Code(s): K21.9 - Gastro-esophageal reflux disease without esophagitis Plan: Avoid the foods that causes that usually spicy foods, tomato products, juices, coffee, soda and foods that your sensitive to. After eating do not lie down, allow 3-4 hours before in lie down. And keep the head of bed above 30 degrees to avoid the acid from going up. (7) Generalized anxiety disorder: Code(s): F41.1 - Generalized anxiety disorder Category: Medical Plan: Continue with present medication
== END 2024-05-19 09:03 | disposition home or self-care (01) ==
PROVIDERS: PCP Internal Medicine; Visit Provider Internal Medicine
DX: Z00.00 Encounter for general adult medical examination without abnormal findings (principal); C73 Malignant neoplasm of thyroid gland; E66.9 Obesity, unspecified; Z68.34 Body mass index [BMI] 34.0-34.9, adult; Z90.3 Acquired absence of stomach [part of]; E89.0 Postprocedural hypothyroidism; K21.9 Gastro-esophageal reflux disease without esophagitis; F41.1 Generalized anxiety disorder

== ENCOUNTER → 2024-05-19 08:21 | Outpatient (BNVA) | payer OTHER, SELFPAY | PROVIDERS: PCP Internal Medicine; Visit Provider Internal Medicine | DX: Z00.00 Encounter for general adult medical examination without abnormal findings (principal); Z90.3 Acquired absence of stomach [part of]; E66.9 Obesity, unspecified; C73 Malignant neoplasm of thyroid gland; E89.0 Postprocedural hypothyroidism; K21.9 Gastro-esophageal reflux disease without esophagitis; F41.1 Generalized anxiety disorder | CPT/HCPCS: 96127 ==

== ENCOUNTER 2024-09-08 07:33 | Outpatient (REF) | payer OTHER, SELFPAY ==
[2024-09-08 12:09] LABS: Free T4 (Free Thyroxine) 0.85 ng/dL (0.71-1.85); Thyroid Stimulating Hormone 1.48 uIU/mL (0.32-4.0)
[2024-09-09 18:22] LABS: Thyroglobulin <0.1 ng/mL; Thyroglobulin Antibodies <1 IU/mL (< or = 1)
[2024-09-12 05:29] LABS: Thyroglobulin Antibody <1 IU/mL (<=1); Thyroglobulin Level <0.1 ng/mL
== END 2024-09-08 07:34 | disposition home or self-care (01) ==
LOC: HO.HMGCLDS 07:33
PROVIDERS: PCP Internal Medicine; Visit Provider Student in an Organized Health Care Education/Training Program
DX: C73 Malignant neoplasm of thyroid gland (principal)
CPT/HCPCS: 36415; 84432; 84439; 84443; 86800

== ENCOUNTER 2024-11-16 14:23 | Outpatient (REF) | payer OTHER, SELFPAY ==
--- NOTE | ~2024-11-16 | US_ITS ---
EXAMINATION: US THYROID CLINICAL INFORMATION: 6.. Total thyroidectomy. COMPARISON: Ultrasound thyroid 10/11/2022 and ultrasound soft tissue neck 06/20/2022. TECHNIQUE: Linear transducer clements-scale and color Doppler examination with attention to the region of the thyroid. FINDINGS: THYROID BED: Patient is undergone previous thyroidectomy with no residual thyroid tissue seen. NODES: Multiple bilateral small benign-appearing lymph nodes. Right neck nodes: 1.Level 1B. 1.4 x 0.7 x 0.7 cm. Normal. Previously measured 0.8 x 0.5 x 0.7 cm. 2. Level 2B: 2.5 x 0.6 x 1.0 cm. Normal. Previously measured 1.5 x 0.6 x 0.8 cm. 3. Level 3: 1.6 x 0.3 x 0.8 cm. Normal. Previously measured 1.6 x 0.3 x 0.6 cm. 4. Level 4: 1.8 x 0.3 x 0.6 cm. Normal. New. 5. Level 5A: 1.0 x 0.3 x 0.9 cm. Normal. New. Left neck lymph nodes: 1. Level 1B: 0.6 x 0.7 x 1.7 cm. New. Normal. 2. Level 2: 1.2 x 0.5 x 0.9 cm. Normal. Previously measured 1.0 x 0.4 x 1 0.8 cm. 3. Level 2: 1.1 x 0.4 x 1.0 cm. Normal. Previously measured 1.7 x 0.5 x 0.6 cm. 4. level 5A: 1.0 x 0.3 x 1.0 cm. Normal. New. 5. Level 5A: 1.9 x 0.5 x 1.2 cm normal. Previously measured 1.6 x 0.5 x 1.2 cm. 6. Level 5B: 1.4 x 0.3 x 0.8 cm. Normal. Previously measured 1.4 x 0.2 x 0.7 cm. US/US soft tiss head and/or neck IMPRESSION: Total thyroidectomy with no residual thyroid tissue seen. Bilateral benign neck lymph nodes. Electronically signed by: Tano Sexton MD 11/17/2024 07:41 AM EDT
--- OUTSIDE RECORDS SUMMARY | 2024-11-16 15:38 | XMS_ITS | Data Portability ---
Author Organization [facility] [address] Address [address] [place] [address] Assessment No assessment recorded. Plan of Treatment Reminders Order Date Submit Date Provider Last Modified By Organization Details Last Modified Time Details Appointments None recorded. Lab None recorded. Referral None recorded. Procedures None recorded. Surgeries None recorded. Imaging None recorded. Medication Orders prednisone 20 mg tablet 2022 023 [facility] #[id number], [address] [place], [address], 19:08:16 amoxicillin 875 mg-potassiu m clavulanate 125 mg tablet 2022 023 [id number] [address] [facility] [place], [address], 3 19:08:16 Patient TargetsNo targets recorded. Patient Instructions Encounter Date Encounter Id Patient Instructions Last Modified By Organization Details Last Modified Time 08/12/2022 [id number] earache: care instructions Not available 08/12/2022 19:08:13 ear infection (otitis media): care instructions Not available 08/12/2022 19:08:13 Sinusitis is an infection of the lining of the sinus cavities in your head. Sinusitis often follows a cold. It causes pain and pressure in your head and face. In most cases, sinusitis gets better on its own in 1 to 2 weeks. But some mild symptoms may last for several weeks. Sometimes antibiotics are needed. if you are having problems. It's also a good idea to know your test results and keep a list of the medicines you take. How can you care for yourself at home? Take an lyqo-ebb-xvpksav pain medicine. Avoid Ibuprofen, Aleve and Aspirin if . If the doctor prescribed antibiotics, take them as directed. Do not stop taking them just because you feel better. You need to take the full course of antibiotics. Be careful when taking nkeh-ihj-lgkqnsa cold or influenza (flu) medicines and Tylenol at the same time. Many of these medicines have acetaminophen, which is Tylenol. Read the labels to make sure that you are not taking more than the recommended dose. Too much acetaminophen (Tylenol) can be harmful. Breathe warm, moist air from a steamy shower, a hot bath, or a sink filled with hot water. Avoid cold, dry air. Using a humidifier in your home may help. Follow the directions for cleaning the machine. Use saline (saltwater) nasal washes. This can help keep your nasal passages open and wash out mucus and bacteria. You can buy saline nose drops at a grocery store or drugstore. Or you can make your own at home by adding 1 teaspoon (5 millilitres) of salt and 1 teaspoon (5 millilitres) of baking soda to 2 cups (500 mL) of distilled water. If you make your own, fill a bulb syringe with the solution, insert the tip into your nostril, and squeeze gently. Blow your nose. Put a hot, wet towel or a warm gel pack on your face 3 or 4 times a day for 5 to 10 minutes each time. Try a decongestant nasal spray like oxymetazoline (Drixoral). Do not use it for more than 3 days in a row. Using it for more than 3 days can make your congestion worse. Not available 08/12/2022 19:08:12 Reason for Referral None Reported. Problems Name Problem SNOMED Code Status Onset Date Resolution Date Notes Provider Name and Address Organization Details Recorded Time Malignan t tumor of thyroid gland 641455059 Completed 202208/12/2022 Removal Reason: thyroid was removed, being monitored at this time [facility] Quiles [facility] 18:39:21 Problem Notes None recorded. Procedures Surgical History Date Name Laterality Status Provider Name and Address Organization Details Recorded Time delivery completed Edilia Monfette PA - [facility] 08/12/2022 18:42:11 completion thyroidectomy completed Edilia Dias PA - [facility] 08/12/2022 18:42:20 tonsillectomy completed Edilia Dias PA - [facility] 08/12/2022 18:42:34 Carpal tunnel surgery completed Edilia Dias PA - [facility] 08/12/2022 18:42:40 Imaging Results None recorded. Procedure Notes None recorded. Medical Equipment None Reported. Allergies Allergen ID Allergen Name Allergen Category Reaction Reaction Severity Criticality Documentation Date Start Date Code Code System Note Provider Name and Address Organization Details Recorded Time [id number] erythromy mattie medicatio n Not available Not available Not available 08/12/2022 4053 RxNorm Edilia Dias iesha PA - [facility] 18:37:12 Medications Name Sig Start Date Stop Date Status Note LastModified by Organization Details LastModified Time levothyroxi ne 137 mcg tablet 08/12 completed Not Available Not Available Not Available prednisone 20 mg tablet Take 2 tablets every day by oral route in the morning for 3 days. 2022 active Not Available Not Available Not Avai lable acetaminoph en 500 mg tablet TAKE 2 TABLETS BY MOUTH EVERY 6 HOURS NEEDED FOR PAIN active Not Available Not Available No t Available famotidine 20 mg tablet TAKE 1 TABLET BY MOUTH TWICE A DAY 08/12 completed Not Available Not Available Not Available levothyroxi ne 125 mcg tablet TAKE 1 TABLET BY MOUTH EVERY DAY FOR 30 DAYS active Not Available Not Available No t Available docusate sodium 100 mg capsule TAKE 1 CAPSULE BY MOUTH TWICE A DAY 08/12 completed Not Available Not Available Not Available nystatin 100,000 unit/gram topical powder APPLY TO AFFECTED AREA 3 TIMES A DAY 08/12 completed Not Available Not Available Not Available ondansetron 4 mg disintegrat ing tablet TAKE 1 TABLET BY MOUTH EVERY 8 HOURS NEEDED FOR NAUSEA 08/12 completed Not Available Not Available Not Available sertraline 50 mg tablet TAKE 1 TABLET BY MOUTH EVERY DAY FOR 90 DAYS active Not Available Not Available No t Available amoxicillin 875 mg-potassiu m clavulanate 125 mg tablet Take 1 tablet twice a day by oral route with meals for 10 days. 2022 active Not Available Not Available Not Avai lable calcium active Not Available Not Avail able Not Available levothyroxi ne 150 mcg capsule TAKE 1 CAPSULE BY MOUTH EVERY DAY 08/12 completed Not Available Not Available Not Available Bariatric Multivitami ns active Not Available Not Available Not Available Thyrogen 0.9 mg intramuscul ar solution 08/12 completed Not Available Not Available Not Available Vitals Date Recorded Body height Body mass index (BMI) Body weight Oxygen saturation Oxygen saturation in Arterial blood by Pulse oximetry Heart rate Respiratory rate Body temperature Systolic blood pressure Diastolic blood pressure Provider Name and Address Organization Details Last Updated DateTime 162.56 cm 35 kg/m2 57349.8 4 g 98 % 98 % 78 /min 18 /min 98.7 [degF] 116 mm[Hg] 84 mm[Hg] Edilia Dias [facility] 18:44:58 Social History Question Answer Notes LastModified by Room Choice Details LastModified Time Tobacco Smoking Status Former Smoker Edilia julian PA [facility] 08/12/2022 18:42:01 When Did You Quit Smoking? 16+yearssinc elastcigaret te Information not available 08/12/2022 Have You Recently Traveled Abroad? No Information not available 08/12/2022 Sex: Unknown Functional Status Question Answer Note LastModified by Room Choice Details LastModified Time Do you use any illicit or recreational drugs? No Information not available 08/12/2022 Do you or have you ever used any other forms of tobacco or nicotine? No Information not available 08/12/2022 What is your level of alcohol consumption? None Information not available 08/12/2022 Mental Status None recorded. Family History Relationship Description Onset Age of this Age Resolved Age Notes LastModified by Organization Details LastModified Time Father No current problems or disability [email or web address] Not available 08/12 18:39:36 Mother No current problems or disability [email or web address] Not available 08/12 18:39:36 Medical History No medical history recorded. Gynecological HistoryNo gynecological history recorded. Obstetrics History GPAL:G 0 P 0 0 0 0 Immunizations Vaccine Type Date Status Note Provider Nam e and Address Organization Details Recorded Time Influenza, split virus, quadrivalent, preservative 9 completed Edilia Monfette null, PA - [facility] 08/12/2022 18:36:31 COVID-19, mRNA, LNP-S, PF, 100 mcg/0.5mL dose or 50 mcg/0.25mL dose 2 completed Edilia Monfette null, PA - [facility] 08/12/2022 18:36:31 COVID-19, mRNA, LNP-S, PF, 100 mcg/0.5mL dose or 50 mcg/0.25mL dose 1 completed Edilia Monfette null, PA - [facility] 08/12/2022 18:36:31 COVID-19, mRNA, LNP-S, PF, 100 mcg/0.5mL dose or 50 mcg/0.25mL dose 1 completed Edilia Monfette null, PA - [facility] 08/12/2022 18:36:31 pneumococcal polysaccharide PPV23 4 completed Edilia Monfette null, PA - [facility] 08/12/2022 18:36:31 Tdap 8 completed Edilia Monfette null, PA - [facility] 08/12/2022 18:36:31 DTaP 4 completed Edilia Monfette null, PA - [facility] 08/12/2022 18:36:31 Influenza, split virus, quadrivalent, PF 8 completed Edilia Monfette null, PA - [facility] 08/12/2022 18:36:31 Influenza, split virus, quadrivalent, PF 1 completed Edilia Monfette null, PA - [facility] 08/12/2022 18:36:31 Influenza, split virus, quadrivalent, PF 2 completed Edilia Monfette null, PA - [facility] 08/12/2022 18:36:31 Past Encounters Encounter ID Performer Location Encounter Start Date Encounter Closed Date Diagnosis/Indication Diagnosis SNOMED-CT Code Diagnosis ICD10 Code Diagnosis Note [id number] [address] [place] [address] 06/14/2016 14:00:46 06/14/2016 14:53:28 [id number] [address] [place] [address] 01/24/2015 13:32:34 01/24/2015 15:14:07 [id number] [address] [place] [address] 07/05/2018 13:58:11 07/05/2018 14:41:47 [id number] [address] [place] [address] 11/24/2016 10:44:59 11/24/2016 11:09:03 [id number] [address] [place] [address] 06/27/2017 08:23:37 06/27/2017 09:20:26 [id number] Michel Bertrand NP [address] [place] [address] 08/12/2022 18:27:41 08/12/2022 19:12:18 Acute sinusitis 77580542 J01.90 Health Concerns Section Related Observation LastModified by Organization Detai ls LastModified Time None Recorded Concern Status LastModified by Organization Details LastModified Time None Recorded Advance Directives Directive None Recorded Payers Insurance Date Sequence Insurance Name Policy Number Policy Smith Covered Member ID Smith Member ID Guarantor Name 08/12/2022 1 [facility] [id number] Margo Casarez [id number] Margo Casarez 08/12/2022 1 [facility] 112 Dev Casarez [id number] Margo Casarez 08/13/2022 1 [place] [employer] [address] [place] [id number] Margo Casarez Notes Date Note Type Note Provider Name and Address Organization Details Recorded Time 08/12/2022 text/html CongestionReport ed bypatient.Notes:nasal congestion with post nasal drip x 2 weeks. denies any fever or fever with chills. no SOB or respiratory distress.Ear Pain Brief HPIReported bypatient.Location:pain radiates to neck; bilateral Onset/Timing:intermitte nt pain; gradual onset Duration:occurs daily; sensation/episode variable length Quality:aching pain;sharp pain Severity:getting worse; current pain 5/10 Context:recent ear infection Alleviating factors:ototopical antibiotics: ; nasal steroid spray Aggravating factors:sinus infections; allergies; irrigation of ear Associated Symptoms:Cough;nasal congestion;nasal discharge Michel Bertrand NP [address] [place], [address], PA - [facility] 08/12/2022 19:08:59 OBGyn Episode No OBEpisode recorded.
== END 2024-11-16 14:24 | disposition home or self-care (01) ==
LOC: HO.HMGCX 14:23
PROVIDERS: PCP Internal Medicine; Visit Provider Student in an Organized Health Care Education/Training Program
DX: Z85.850 Personal history of malignant neoplasm of thyroid (principal)
CPT/HCPCS: 76536

== ENCOUNTER → 2024-11-16 14:26 | Outpatient (BNV) | payer OTHER, SELFPAY | PROVIDERS: PCP Internal Medicine; Visit Provider Radiology Diagnostic Radiology | DX: D36.0 Benign neoplasm of lymph nodes (principal); Z90.89 Acquired absence of other organs | CPT/HCPCS: 76536 ==

== ENCOUNTER 2024-11-17 08:32 | Outpatient (AMB) | payer OTHER, SELFPAY ==
[2024-11-17 08:34] VITALS: BP 120/80; PULSE 68; O2SAT 99; BMI 37.2
--- NOTE | 2024-11-17 08:34 | MHC.PC.OV ---
Vital Signs 11/17/24 08:34 Height 5 ft 4 in Weight 217 lb BMI 37.2 BP 120/80 Blood Pressure Location Lt brachial Position Sitting Pulse 68 Pulse Source Pulse Oximeter Pulse Oximetry (%) 99 Oxygen Delivery Method Room Air Intake Visit Reasons: hypothryoid cancer hx of thyroid cancer Correctional Substance Abuse Counselor Required: No Accompanied by: Self / Same As Patient Allergies erythromycin base Allergy (Unknown, Verified 11/17/24 08:34) Stomach Upset Medication List - Last Reconciled 11/17/24 by Aman Mcnally MD [BARIATRIC VITAMINS 1 cap PO .QD] calcium 26-vit D3-magnesium 15 167 mg calcium- 1.67 mcg-83 mg caps PO .QD levothyroxine 125 mcg PO DAILY sertraline 50 mg PO DAILY 90 days Tobacco use date assessed: 11/17/24 Dental Screening Dental Screen Date: 11/17/24 Did you have a dental visit in the last 12 months?: Yes Did you have a dental problem in the last 6 months where you did not have access to dental care?: No Was dental information given to patient?: Patient has dentist [facility] Medical History (Updated 11/17/24 @ 08:52 by Aman Mcnally MD) History of thyroid cancer Obesity Morbid obesity due to excess calories BMI 45.0-49.9, adult Breast cancer screening Preop exam for internal medicine Contusion of foot, right Cervical lymphadenopathy Vitamin D deficiency Hoarseness Eczema Primary thyroid cancer Ventral hernia Umbilical hernia Distal radius fracture, left Heart murmur Anxiety GERD (gastroesophageal reflux disease) Anemia Post-surgical hypothyroidism Non-toxic multinodular goiter Surgical History Hx of gastric bypass Carpal tunnel syndrome History of thyroidectomy Hx of section Hx of tonsillectomy Family History Father No problems noted. Mother No problems noted. Daughter No problems noted. Daughter No problems noted. Daughter No problems noted. Daughter No problems noted. Paternal Grandfather Penile cancer Social History Housing: House Alcohol intake: current Alcohol intake frequency: holidays/special occasions only Comment: once a year 2 drinks Patient Tobacco Use Status: Former Tobacco user Tobacco use type: Cigarette Years Smoked: quit 2005 2 years e-Cigarette/Vaping Use: Never Used Second Hand Smoke Exposure: No service: No Current occupational status: employed Cognitive needs: No Hearing needs: No Vision needs: No Questionnaire PHQ-9 Over the last 2 weeks, how often have you been bothered by any of the following problems? 1. Little interest or pleasure in doing things: not at all 2. Feeling down, depressed, or hopeless: not at all 3. Trouble falling or staying asleep, or sleeping too much: not at all 4. Feeling tired or having little energy: not at all 5. Poor appetite or overeating: not at all 6. Feeling bad about yourself - or that you are a failure or have let yourself or your family down: not at all 7. Trouble concentrating on things, such as reading the newspaper or watching television: not at all 8. Moving or speaking so slowly that other people could have noticed. Or the opposite - being so fidgety or restless that you have been moving around a lot more than usual: not at all 9. Thoughts that you would be better off or of hurting yourself in some way: not at all Total score: 0 Source: Developed by Drs. Rene Pedro, Brandi Pascual, Arash Campuzano and colleagues, with an educational rhett from [employer]. Thrive Questionnaire Date Thrive assessed: 11/17/24 I am a: Patient What is your living situation today?: I have a steady place to live Within the past 12 months, did the food you bought not last and you didn't have the money to get more?: Never true Within the past 12 months, did you worry whether your food would run out before you got money to buy more?: Never true Do you have trouble paying for medicines?: No Do you have trouble getting transportation to medical appointments?: No Do you have trouble paying your heating and electricity bill?: No Do you have trouble taking care of your child, family member or friend?: No Do you have trouble with day-to-day activities such as bathing, preparing meals, shopping, managing finances, etc.?: No Are you currently unemployed and looking for a job?: No Are you interested in more education?: No Please select the resources that you would like help with: None Currently or been in a relationship where the following occur: No concerns reported THRIVE Score: 0 AUDIT C Alcohol Use Questionnaire (AUDIT-C) 1. How often do you have a drink containing alcohol?: Monthly or less 2. How many drinks containing alcohol do you have on a typical day when you are drinking?: 1 or 2 3. How often do you have six or more drinks on one occasion?: Never Total Score: 1 JOANNE-7 AMB Questionnaire JOANNE-7 Date JOANNE - 7 assessed: 11/17/24 Feeling nervous, anxious, or on edge: 1 = Several days Not being able to stop or control worryin = Not at all Worrying too much about different things: 0 = Not at all Trouble relaxin = Not at all Being so restless that it is hard to sit still: 0 = Not at all Becoming easily annoyed or irritable: 0 = Not at all Feeling afraid as if something awful might happen: 0 = Not at all Total JOANNE-7 score (0-4 normal; 5-9 mild; 10-14 moderate; 15-21 severe): 1 Source: Developed by Drs. Rene Pedro, Brandi Pascual, Arash Campuzano and colleagues, with an educational rhett from [employer]. Physical exam (Primary Care) Vital Signs: Last Vital Signs Pulse 68 11/17/24 08:34 BP 120/80 11/17/24 08:34 Pulse Ox 99 11/17/24 08:34 Oxygen Delivery Method Room Air 11/17/24 08:34 BMI result Body Mass Index 37.2 Tobacco/Smoking Status: Tobacco use Status Tobacco use date assessed 11/17/24 11/17/24 08:42 Patient Tobacco Use Status Former Tobacco user 11/17/24 08:42 Tobacco use type Cigarette 11/17/24 08:42 e-Cigarette/Vaping Use Never Used 11/17/24 08:42 PHQ-9: PHQ-9 Score PHQ-9: Total score 0 11/17/24 08:52 Thrive Assessment: Date of Thrive Assessment Date Thrive assessed 11/17/24 11/17/24 08:42 Currently or been in a relationship where the following occur: No concerns reported Const General: alert; No acute distress Eyes Conjunctivae: conjunctivae normal Resp Auscultation: clear to auscultation bilaterally Cardio Rate: regular rate Rhythm: regular rhythm GI Inspection: Yes normal to inspection Extrem General: Yes normal to inspection and No edema Coding Level of Care Code Est Pt Level 4 (81977) Complex EM visit Add On G2211 Diagnoses Status post sleeve gastrectomy Z90.3 Primary thyroid cancer C73 Gastroesophageal reflux disease without esophagitis K21.9 Esophagitis presence: without esophagitis Post-surgical hypothyroidism E89.0 Superficial thrombophlebitis I80.9 Obesity (BMI 30-39.9) E66.9 Umbilical hernia K42.9 Assessment & Plan Assessment & Plan (1) Status post sleeve gastrectomy: Comment: Dr. Ball 04/12/2022 Code(s): Z90.3 - Acquired absence of stomach [part of] Category: Surgical Plan: Continue to follow-up with bariatric surgeon (2) Primary thyroid cancer: Comment: Ablation done Dr. Ericka Nava 11/2020, thyroidectomy 2020 Code(s): C73 - Malignant neoplasm of thyroid gland Category: Medical Plan: Patient just had recent ultrasound in November 2024 negative (3) GERD (gastroesophageal reflux disease): Code(s): K21.9 - Gastro-esophageal reflux disease without esophagitis Category: Medical Qualifiers: Esophagitis presence: without esophagitis Qualified Code(s): K21.9 - Gastro-esophageal reflux disease without esophagitis Plan: Avoid the foods that causes that usually spicy foods, tomato products, juices, coffee, soda and foods that your sensitive to. After eating do not lie down, allow 3-4 hours before in lie down. And keep the head of bed above 30 degrees to avoid the acid from going up. (4) Post-surgical hypothyroidism: Code(s): E89.0 - Postprocedural hypothyroidism Category: Medical Plan: Continue to take thyroid medication and continue to monitor blood work (5) Superficial thrombophlebitis: Comment: - 07/2024 Code(s): I80.9 - Phlebitis and thrombophlebitis of unspecified site Category: Medical Plan: Warm compresses keep active support stocking (6) Obesity (BMI 30-39.9): Code(s): E66.9 - Obesity, unspecified Category: Medical Plan: Diet and exercise continue to follow-up with bariatric surgeon (7) Umbilical hernia: Comment: Dr. Ball 07/2024 Code(s): K42.9 - Umbilical hernia without obstruction or gangrene Category: Medical Plan: Discussed about options with umbilical hernia Plan History of Present Illness The patient is a 44-year-old female presenting for a follow-up visit. She has gained 17 pounds recently and has a past medical history of thyroid cancer treated with thyroidectomy in 2020, with no current hypothyroidism noted. She has been diagnosed with GERD and generalized anxiety disorder, and has undergone a gastrectomy in 2021. On her recent visit to the emergency room in July for left leg pain, superficial venous thrombosis was diagnosed and deep vein thrombosis was excluded. Management included the use of compression wraps and NSAIDs. Another emergency visit in July was related to abdominal pain due to a history of umbilical hernia, which has since been repaired surgically by Dr. Scherer in August. Recently, she had an ultrasound of the thyroid area, performed on November 16, 2024, showing no residual thyroid tissue and benign neck lymph nodes. She has expressed concern over varicose veins, a post-surgical complication. The patient retains compliance with her thyroid medication and is managing GERD with lifestyle adjustments, including diet and exercise. Health Maintenance - Mammogram scheduled externally at [facility] with follow-up planned. - Thyroid ultrasound monitored with no residual issues from previous cancer. - Continued emphasis on active lifestyle for weight management post-gastrectomy and overall health. 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 - Family: with children, including a recent high school graduate. - Lifestyle: Attempts regular exercise but faces routine interruptions due to family and professional responsibilities. - Grade school children involved in activities which encourage patient activity. - Recognizes stress factors related to family dynamics and professional duties. Review of Systems - Musculoskeletal: Reports left leg pain in the past with superficial venous thrombosis diagnosis. - Gastrointestinal: Denies current abdominal pain; history inclusive of GERD and a surgically repaired hernia. - Endocrinological: Denies current symptoms of hypothyroidism; status post thyroidectomy. - Psychiatric: Reports stress and anxiety related to family and professional life. Physical Exam Results - Tests and Diagnostics: Recent thyroid ultrasound showed no residual thyroid tissue; benign neck lymph nodes noted. Plan The follow-up visit focused on managing obesity through lifestyle changes, such as exercise and diet adjustment, while continuing thyroid medication post-thyroidectomy with routine ultrasounds to monitor any recurrence. GERD is addressed by reinforcing dietary changes. The post-umbilical hernia repair will be monitored for tenderness related to physical activity. Superficial venous thrombosis will be managed with compression wraps and NSAID use when necessary, encouraging consistent movement to prevent further issues. The patient shows adherence to scheduled health maintenance screenings like mammograms, highlighting the importance of ongoing health vigilance. Stress and anxiety management continue with sertraline and lifestyle adjustments. Patient was informed and verbally consented to the use of an ambient scribe for clinic note documentation during this visit. Discussion Notes During the visit, we reviewed the management of the patient's obesity, emphasizing the necessity of lifestyle changes involving diet and exercise. The importance of ongoing follow-up in the context of her post-thyroidectomy care was discussed, with management including the continuation of thyroid medication and regular thyroid ultrasounds showing reassuring stability. GERD management strategies were reinforced, involving dietary adjustments to mitigate symptoms. Post-surgical care for the repaired umbilical hernia was highlighted, and we addressed concerns regarding post-operative tenderness. The patient was reminded to manage her superficial venous thrombosis through compression and NSAID use when needed, with ongoing encouragement toward remaining physically active. We acknowledged her adherence to scheduled health maintenance steps, including mammogram follow-ups. Anxiety related to life stressors is managed by continuing the current medication regimen, and we discussed the possibility of counseling as supportive care. Return for routine follow-up was advised, and she was encouraged to contact us for any new or worsening symptoms. Patient Instructions - Continue with dietary and exercise modifications to manage weight. - Follow thyroid medication regimen and monitor for any symptoms. - Manage GERD symptoms with advised dietary changes. - Apply compression wraps for leg veins as needed and use NSAIDs if necessary. - Maintain an active lifestyle as feasible. - Attend scheduled mammogram appointments. - Manage anxiety with sertraline and consider counseling support. - Follow up in six months, or sooner if any new or concerning symptoms arise. Orders: Orders Free T4 (Free Thyroxine) 6 Months E89.0 - Postprocedural hypothyroidism, Z85.850 - Personal history of malignant neoplasm of thyroid Medications: Refilled sertraline 50 mg PO DAILY 90 tabs 1RF 90 days F41.1 - Generalized anxiety disorder
== END 2024-11-17 09:04 | disposition home or self-care (01) ==
LOC: HO.HMCH 08:33
PROVIDERS: PCP Internal Medicine; Visit Provider Internal Medicine
DX: K21.9 Gastro-esophageal reflux disease without esophagitis (principal); C73 Malignant neoplasm of thyroid gland; E66.9 Obesity, unspecified; Z68.37 Body mass index [BMI] 37.0-37.9, adult; Z90.3 Acquired absence of stomach [part of]; E89.0 Postprocedural hypothyroidism; I80.9 Phlebitis and thrombophlebitis of unspecified site; K42.9 Umbilical hernia without obstruction or gangrene

== ENCOUNTER → 2024-11-17 08:32 | Outpatient (BNVA) | payer OTHER, SELFPAY | PROVIDERS: PCP Internal Medicine; Visit Provider Internal Medicine | DX: K42.9 Umbilical hernia without obstruction or gangrene (principal); K21.9 Gastro-esophageal reflux disease without esophagitis; E89.0 Postprocedural hypothyroidism; I80.9 Phlebitis and thrombophlebitis of unspecified site; E66.9 Obesity, unspecified; Z85.850 Personal history of malignant neoplasm of thyroid; Z90.3 Acquired absence of stomach [part of] | CPT/HCPCS: 96127; 99212 ==

== ENCOUNTER 2024-12-31 08:04 | Outpatient (AMB) | payer OTHER, SELFPAY ==
[2024-12-31 08:06] VITALS: BP 110/86; PULSE 59; O2SAT 98; BMI 38.4
--- NOTE | 2024-12-31 08:06 | A.OFFVIS_ITS ---
Vital Signs 3 12/31/24 08:06 Height 5 ft 4 in Weight 223 lb 15.834 oz BMI 38.4 BP 110/86 Blood Pressure Location Lt brachial Position Sitting Pulse 59 Pulse Source Pulse Oximeter Pulse Oximetry (%) 98 Oxygen Delivery Method Room Air Intake Visit Reasons: F/u thyroid cancer- Intake Note: Patient present today for thyroid cancer office visit. Stained Glass Glazier Required: No Accompanied by: Self / Same As Patient Allergies erythromycin base Allergy (Unknown, Verified 12/31/24 08:09) Stomach Upset Medication List - Last Reconciled 12/31/24 by Charlotte Almanza MD [BARIATRIC VITAMINS 1 cap PO .QD] calcium 26-vit D3-magnesium 15 167 mg calcium- 1.67 mcg-83 mg caps PO .QD levothyroxine 125 mcg PO DAILY sertraline 50 mg PO DAILY 90 days HPI Comments Details: 43-year-old female coming in today for follow up status post total thyroidectomy with central compartment lymph node dissection 08/17/2020 multifocal bilateral papillary thyroid cancer with largest focus 1.6 cm (conventional with focal tall cell features), no AI/LI, positive focal ETE, negative margins but close, with a 1/6 lymph nodes positive for metastatic disease, (AJCC stage I pT1b N1a, PRASHANT intermediate risk for recurrence) and I 131 adjuvant treatment 11/30/2020 with 99.5 mCi with Thyrogen stimulation. Currently PRASHANT excellent response to therapy. 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 07/14/2020: FNA biopsy of bilateral nodules with suspicious for PTC so she was referred for total thyroidectomy. 08/17/2020: Underwent total thyroidectomy with Dr. Дмитрий Rand at [facility], official surgical pathology revealed 3 foci of PTC, 1.6 cm and 0.1 cm in the left lobe and 1.2 cm in the right lobe. This was conventional type with focal tall cell features. No angioinvasion, lymphatic invasion or perineural invasion. Focal extrathyroidal invasion is seen, negative margins but focally very close (less than 0.05 cm, left lobe anterior peripheral margin). 1/6 lymph nodes positive for metastatic disease. 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 AJCC stage 1, pT1b N1a, PRASHANT intermediate risk of recurrence. 11/30/2020: Underwent Thyrogen stimulated adjuvant treatment with 99.5 mCi of I 131. 11/30/2020: Stimulated labs TSH 60.29, TG 0.5, TG antibody less than 1 12/09/2020: Whole-body scan revealed only physiologic uptake 05/01/2021: Repeat labs TSH 0.57, TG 0.1, TG antibody less than 1 05/31/2021: Ultrasound head and neck reveal 2 abnormal-appearing lymph nodes, a right level 2, 1.7 cm and a left level 5A 1.9 cm cervical lymph node. 07/10/2021: FNA biopsy of both of these with no evidence of malignancy, both with negative thyroglobulin washout 12/09/2021: Whole-body scan with Thyrogen stimulation revealed intense uptake at the right level 2A level with a PET-CT revealing 2 lymph nodes in that region measuring 7 mm and 8 mm respectively. Uptake was otherwise physiologic. 12/08/2021: Labs with TSH 73.11, TG less than 0.1, TG antibody less than 1 01/02/2022: Ultrasound head and neck showed abnormal-appearing right level lymph nodes largest 1 at level 3 measuring 1.5 cm., left level 3, 1.7 cm lymph node without hilar architecture by the otherwise looking normal. 06/27/2022: Labs again repeated with suppressed TSH. 06/20/2022 ultrasound head and neck read as having multiple abnormal-appearing lymph nodes. Right level 2, 1.5 cm abnormal-appearing lymph node, left level 3, 1.6 cm abnormal-appearing lymph node without a hilum September 2022: Dr. Phelps repeated the ultrasound herself and noted no abnormal lymph nodes. November 2023: Dr. Fowler at [facility] Did in office US which I verified on her phone from Dr. Fowler's office note dated 11/29/23 she did not see any abnormal lymph nodes, saw multiple reactive lymph nodes , I dont see the official report in the system. 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 Currently on levothyroxine 125 mcg Daily, taking it appropriately, adherent to therapy. Weight is stable. Bowel movements are regular. No tremors. No palpitations. 04/17/2024: TSH 2.17, free T4 1.08, TG less than 0.1, TG antibody less than 1 09/08/2024: TSH 1.48, free T4 0.85, TG less than 0.1, TG antibody less than 1 11/16/2024: Ultrasound neck showed bilateral benign-looking lymph nodes 12/29/24: TSH 1.11 done at [facility] saw on patient phone portal Physical exam General: sitting comfortably in no acute distress HEENT: normocephalic/atraumatic, , moist oral mucosa Neck: supple, symmetrical, no palpable lymph nodes, no dorsocervical or supraclavicular fat pads Cardiac: normal heart sounds Pulm: normal breath sounds B/L, no added breath sounds Abd: not distended, no tenderness Extremities: no edema, no signs of myxedema Neuro: AAO x3, Speech: normal, no facial droop, moving all 4 extremities Laboratory Tests 03/20/18 04/30/18 05/07/19 12:48 06:45 15:13 Free T4 0.63 L 0.82 0.99 TSH Thyroglobulin Thyroglobulin Antibody 05/20/20 07/13/20 07/20/20 13:06 14:46 13:05 Free T4 0.94 1.05 TSH 0.99 3.61 2.81 Thyroglobulin Thyroglobulin Antibody <1 10/13/20 11/30/20 12/24/20 07:56 08:00 09:37 Free T4 1.01 1.30 1.13 TSH 0.05 L 60.29 H 0.03 L Thyroglobulin 0.5 H 0.5 H <0.1 Thyroglobulin Antibody <1 <1 <1 03/03/21 05/01/21 10/06/21 07:52 07:52 14:20 Free T4 1.09 0.98 1.09 TSH 0.22 L 0.57 0.14 L Thyroglobulin 0.2 H 0.1 H Thyroglobulin Antibody <1 <1 12/04/21 12/06/21 12/08/21 08:18 09:48 10:13 Free T4 1.07 1.27 1.22 TSH 0.08 L 73.11 H 8.11 H Thyroglobulin <0.1 L <0.1 L <0.1 L Thyroglobulin Antibody <1 <1 <1 01/11/22 02/28/22 06/27/22 14:43 13:12 15:08 Free T4 1.36 1.17 1.20 TSH 0.04 L 0.15 L 0.02 L Thyroglobulin Thyroglobulin Antibody 07/09/22 07/09/22 07/09/22 08:22 08:22 08:22 Free T4 1.21 TSH 0.02 L Thyroglobulin <0.1 <0.1 L Thyroglobulin Antibody <1 <1 10/08/22 11/01/23 15:25 09:46 Free T4 1.08 1.10 TSH 0.05 L 0.76 Thyroglobulin <0.1 Thyroglobulin Antibody <1 Laboratory Tests 04/17/24 09/08/24 09:53 07:36 TSH 2.17 1.48 Free T4 1.08 0.85 Thyroglobulin <0.1 <0.1 Thyroglobulin Antibody <1 <1 LAbs on her phone from Dr. Fowler's office 10/08/22 Tg Ab <1 Tg <0.2 TSH 0.05 Free t4 1.08 11/29/23 Tg Ab <0.4 Tg <0.10 TSH 1.03 free T4 1.17 US THYROID 11/16/2024 CLINICAL INFORMATION: 6.. Total thyroidectomy. COMPARISON: Ultrasound thyroid 10/11/2022 and ultrasound soft tissue neck 06/20/2022. TECHNIQUE: Linear transducer clements-scale and color Doppler examination with attention to the region of the thyroid. FINDINGS: THYROID BED: Patient is undergone previous thyroidectomy with no residual thyroid tissue seen. NODES: Multiple bilateral small benign-appearing lymph nodes. Right neck nodes: 1.Level 1B. 1.4 x 0.7 x 0.7 cm. Normal. Previously measured 0.8 x 0.5 x 0.7 cm. 2. Level 2B: 2.5 x 0.6 x 1.0 cm. Normal. Previously measured 1.5 x 0.6 x 0.8 cm. 3. Level 3: 1.6 x 0.3 x 0.8 cm. Normal. Previously measured 1.6 x 0.3 x 0.6 cm. 4. Level 4: 1.8 x 0.3 x 0.6 cm. Normal. New. 5. Level 5A: 1.0 x 0.3 x 0.9 cm. Normal. New. Left neck lymph nodes: 1. Level 1B: 0.6 x 0.7 x 1.7 cm. New. Normal. 2. Level 2: 1.2 x 0.5 x 0.9 cm. Normal. Previously measured 1.0 x 0.4 x 1 0.8 cm. 3. Level 2: 1.1 x 0.4 x 1.0 cm. Normal. Previously measured 1.7 x 0.5 x 0.6 cm. 4. level 5A: 1.0 x 0.3 x 1.0 cm. Normal. New. 5. Level 5A: 1.9 x 0.5 x 1.2 cm normal. Previously measured 1.6 x 0.5 x 1.2 cm. 6. Level 5B: 1.4 x 0.3 x 0.8 cm. Normal. Previously measured 1.4 x 0.2 x 0.7 cm. US/US soft tiss head and/or neck IMPRESSION: Total thyroidectomy with no residual thyroid tissue seen. Bilateral benign neck lymph nodes. Electronically signed by: Tano Sexton MD 11/17/2024 07:41 AM EDT [facility] US SOFT TISSUE NECK 06/20/22 CLINICAL INFORMATION: Personal history of malignant neoplasm of thyroid. COMPARISON: Ultrasound soft tissue neck 01/02/2022 and 05/31/2021. TECHNIQUE: Ultrasound of the neck soft tissues is performed with high-frequency clements-scale imaging and color Doppler. FINDINGS: THYROID BED: Prior thyroidectomy. No residual thyroid tissue demonstrated in the thyroid bed. No cystic or solid nodules demonstrated in the thyroid bed. RIGHT NECK SOFT TISSUES: In addition to the previously seen normal right-sided lymph nodes there is a new abnormal-appearing 1.5 x 0.6 x 0.8 cm right level 2 lymph node. The largest nodes are as follows: Level 2: 1.5 x 0.6 x 0.8 cm. Abnormal appearance with absence of the central fatty hilum. Level 3: 1.6 x 0.3 x 0.6 cm. Normal fei architecture. Unchanged from prior study. LEFT NECK SOFT TISSUES: In addition to the previously seen normal left-sided lymph nodes there is a there is an abnormal appearing left level 3 lymph node and a new left level 4 lymph node The largest nodes are as follows: Level 1B: 1.7 x 0.5 x 0.6 cm. This is new from the prior study but has normal fei architecture Level 3: 1.6 x 0.5 x 1.2 cm. This has an abnormal appearance with an absent fatty hilum. Level 4: 1.4 x 0.2 x 0.7 cm. This is new from prior study but has a normal fei architecture. US/US soft tiss head and/or neck IMPRESSION: 1. New and abnormal bilateral cervical lymph nodes are noted as described above. 2. If clinically indicated further evaluation of the neck soft tissues and nodes may be performed with CT soft tissue neck with intravenous contrast. US SOFT TISSUE NECK 01/02/22 CLINICAL INFORMATION: Enlarged lymph nodes., Iodine uptake on the right at level 2 COMPARISON: Ultrasound biopsy lymph node 07/10/2021. Ultrasound thyroid 06/13/2020. TECHNIQUE: Ultrasound of the neck soft tissues is performed with high- frequency clements-scale imaging and color Doppler. FINDINGS: THYROID BED: Prior thyroidectomy. No residual thyroid tissue demonstrated in the thyroid bed. No cystic or solid nodules demonstrated in the thyroid bed. RIGHT NECK SOFT TISSUES: Scattered architecturally normal nodes are present. The nodes show normal fatty hilus, normal cortical thickness, and no cystic change or calcification. No abnormal color flow. The largest nodes are as follows: Level 1B: 1.0 x 0.5 x 1.0 cm, not significantly changed previously 0.9 x 0.5 x 0.9 cm. Normal fei architecture. Level 3: 1.5 x 0.3 x 0.6 cm, previously 1.5 x 0.3 x 0.8 cm. Not significantly changed in size. Normal fei architecture. LEFT NECK SOFT TISSUES: Scattered architecturally normal nodes are present. The nodes show normal fatty hilus, normal cortical thickness, and no cystic change or calcification. No abnormal color flow. The largest nodes are as follows: Level 2: 1.1 x 0.4 x 1.2 cm, new from prior Normal fei architecture. Level 3: 1.7 x 0.4 x 1.0 cm, new from prior. Hilar architecture was not definitively appreciated however the node demonstrates a new normal oblong morphology, and does not appear rounded. US/US soft tiss head and/or neck IMPRESSION: 1. A 0.4 cm short axis left level 3 node is new from prior. Although hilar architecture was not definitively appreciated node does not demonstrate otherwise abnormal morphology. A 0.4 cm short axis left level 2 node is also new from prior, unremarkable in appearance. 2. A 0.5 cm short axis level 1B node and a 0.3 cm short axis level 3 node are not significantly changed in size from prior and demonstrate normal architecture. No new suspicious right cervical nodes. 3. If clinically indicated further evaluation of the neck soft tissues and nodes may be performed with CT soft tissue neck with intravenous contrast. US SOFT TISSUE NECK 05/31/21 CLINICAL INFORMATION: Post thyroidectomy August 2020. History of papillary thyroid cancer. COMPARISON: None TECHNIQUE: Ultrasound of the neck soft tissues is performed with high-frequency clements-scale imaging and color Doppler. FINDINGS: THYROID BED: Prior thyroidectomy. No residual thyroid tissue demonstrated in the thyroid bed. No cystic or solid nodules demonstrated in the thyroid bed. RIGHT NECK SOFT TISSUES: There are 6 right cervical lymph nodes identified. The largest nodes are as follows: Level 2: 1.7 x 0.5 x 1.1 cm. Abnormal fei architecture with slit-like or absent hilum. The remainder of the lymph nodes demonstrate normal ultrasound morphology. The next largest lymph node: Level 3: 1.5 x 0.3 x 0.8 cm. Normal fei architecture. LEFT NECK SOFT TISSUES: There are 6 left cervical lymph nodes identified. The largest nodes are as follows: Level 5A: 1.9 x 0.4 x 1.1 cm. Abnormal architecture with slitlike or absent hilum. The remainder of the lymph nodes demonstrate normal ultrasound morphology. Level 5B: 1.2 x 0.2 x 0.8 cm. Normal fei architecture. Level 2: 1 x 0.5 x 0.8 cm. Normal fei architecture. US/US soft tiss head and/or neck IMPRESSION: No residual thyroid tissue or nodule seen. Bilateral cervical lymph nodes. [facility] Medical History (Updated 11/17/24 @ 08:52 by Aman Mcnally MD) History of thyroid cancer Obesity Morbid obesity due to excess calories BMI 45.0-49.9, adult Breast cancer screening Preop exam for internal medicine Contusion of foot, right Cervical lymphadenopathy Vitamin D deficiency Hoarseness Eczema Primary thyroid cancer Ventral hernia Umbilical hernia Distal radius fracture, left Heart murmur Anxiety GERD (gastroesophageal reflux disease) Anemia Post-surgical hypothyroidism Non-toxic multinodular goiter Surgical History (Updated 12/31/24 @ 08:10 by QUENTIN Espinal) History of hernia repair Hx of gastric bypass Carpal tunnel syndrome History of thyroidectomy Hx of section Hx of tonsillectomy Family History Father No problems noted. Mother No problems noted. Daughter No problems noted. Daughter No problems noted. Daughter No problems noted. Daughter No problems noted. Paternal Grandfather Penile cancer Social History Housing: House Alcohol intake: current Alcohol intake frequency: holidays/special occasions only Comment: once a year 2 drinks Patient Tobacco Use Status: Former Tobacco user Tobacco use type: Cigarette Years Smoked: quit 2005 2 years e-Cigarette/Vaping Use: Never Used Second Hand Smoke Exposure: No service: No Current occupational status: employed Cognitive needs: No Hearing needs: No Vision needs: No Assessment & Plan Assessment & Plan (1) History of thyroid cancer: Code(s): Z85.850 - Personal history of malignant neoplasm of thyroid Category: Medical Plan: 43-year-old female coming in today for follow up status post total thyroidectomy with central compartment lymph node dissection 08/17/2020 multifocal bilateral papillary thyroid cancer with largest focus 1.6 cm (conventional with focal tall cell features), no AI/LI, positive focal ETE, negative margins but close, with a 1/6 lymph nodes positive for metastatic disease, (AJCC stage I pT1b N1a, PRASHANT intermediate risk for recurrence) and I 131 adjuvant treatment 11/30/2020 with 99.5 mCi with Thyrogen stimulation. Ultrasound in May 2021 showed of normal-appearing lymph nodes that were biopsied in June 2021 with no evidence of malignancy, thyroglobulin washout was negative. She had a whole-body scan in November 2021 that showed an intensely reactive lymph node at right level 2, this was likely a salivary gland given that she has had negative biopsies before, plus ultrasounds repeated in September [address] Phelps and in November [address] Fowler did not show any abnormal lymph nodes. Per office notes from Dr. Fowler's which the patient showed me on her phone, she only saw a reactive lymph nodes. Most recent neck ultrasound November 2024 showed bilateral normal-appearing lymph nodes. Her stimulated and non stimulated TG levels have both been undetectable with undetectable TG antibodies most recently done in August 2024. This is very reassuring. She classifies as PRASHANT excellent response to therapy, . I will plan to get an ultrasound next year in November 2025 prior to follow up in December 2025 , along with her tumor markers. Given excellent response to therapy, TSH goal is 0.5-2. Plan: -continue levothyroxine 125 mcg daily -ordered TSH, free T4, TG and TG antibodies to be done in November 2025 prior to follow up in December 2025 -next ultrasound ordered for November 2025 -follow up with me in December 2025 (2) Post-surgical hypothyroidism: Code(s): E89.0 - Postprocedural hypothyroidism Category: Medical Plan: Given excellent response to therapy, TSH goal is 0.5-2. Plan: -continue levothyroxine 125 mcg daily -ordered TSH, free T4, TG and TG antibodies to be prior to next follow up in 1 year Plan I spent 30 minutes in reviewing the record, seeing the patient and documenting in the medical record. Orders: Orders 2 Free T4 (Free Thyroxine) 11/29/25 C73 - Malignant neoplasm of thyroid gland, E89.0 - Postprocedural hypothyroidism Thyroglobulin 11/29/25 C73 - Malignant neoplasm of thyroid gland, E89.0 - Postprocedural hypothyroidism Thyroglobulin Tumor Marker 11/29/25 C73 - Malignant neoplasm of thyroid gland, E89.0 - Postprocedural hypothyroidism US soft tiss head and/or neck 11/29/25 C73 - Malignant neoplasm of thyroid gland, E89.0 - Postprocedural hypothyroidism Thyroid Stimulating Hormone 11/29/25 C73 - Malignant neoplasm of thyroid gland, E89.0 - Postprocedural hypothyroidism Thyroglobulin Antibodies 11/29/25 C73 - Malignant neoplasm of thyroid gland, E89.0 - Postprocedural hypothyroidism Medications: Refilled 2 levothyroxine 125 mcg PO DAILY 90 tabs 4RF Patient Instructions: Do ultrasound of the neck in November 2025, someone will call you to schedule this , please make sure this is done prior to my next follow up Do thyroid blood work a week or two prior to next follow up Continue levothyroxine 125 mcg daily Follow up in 1 year December 2025 Coding Level of Care Code Est Pt Level 4 (40339) Complex EM visit Add On G2211 Diagnoses History of thyroid cancer Z85.850 Post-surgical hypothyroidism E89.0 Time Spent (min) 30
--- OUTSIDE RECORDS SUMMARY | 2024-12-31 08:07 | XMS_ITS | Data Portability ---
Author Organization [facility] [address] Address [address] [place] [address] Assessment No assessment recorded. Plan of Treatment Reminders Order Date Submit Date Provider Last Modified By Organization Details Last Modified Time Details Appointments None recorded. Lab None recorded. Referral None recorded. Procedures None recorded. Surgeries None recorded. Imaging None recorded. Medication Orders prednisone [address] [facility] #[id number], [address] [place], [address], 19:08:16 amoxicillin 875 mg-potassiu m clavulanate 125 mg tablet [address] [facility] #[id number], [address] [place], [address], 19:08:16 Patient TargetsNo targets recorded. Patient Instructions Encounter Date Encounter Id Patient Instructions Last Modified By Organization Details Last Modified Time 08/12/2022 [id number] earache: care instructions Not available 08/12/2022 19:08:13 [...] care for yourself at home? Take an jgtz-xmq-wbxpezy pain medicine. Avoid Ibuprofen, Aleve and Aspirin if . If the doctor prescribed antibiotics, take them as directed. Do not stop taking them just because you feel better. You need to take the full course of antibiotics. Be careful when taking fdmi-dgq-tmphtcl cold or influenza (flu) medicines and Tylenol [...] Time Malignan t tumor of thyroid gland [id number] Completed 202208/12/2022 Removal Reason: thyroid was removed, being monitored at this time OMAR[facility] Quiles - [facility] 18:39:21 Problem Notes None recorded. Procedures Surgical History Date Name Laterality Status Provider Name and Address Organization Details Recorded Time delivery completed Edilia Dias PA - [facility] 08/12/2022 18:42:11 completion [...] Heart rate Respiratory rate Body temperature Systolic And Diastolic Provider Name and Address Organization Details Last Updated DateTime 162.56 cm 35 kg/m2 40956.8 4 g 98 % 98 % 78 /min 18 /min 98.7 [degF] 116/84 mm[Hg] Edilia Dias [facility] 18:44:58 Social History Question Answer Notes LastModified by [email or web address] Details LastModified Time Tobacco Smoking Status Former Smoker Edilia julian PA [employer] [facility] 08/12/2022 18:42:01 When Did You Quit Smoking? 16+yearssinc elastcigaret te Information not available 08/12/2022 Have You Recently Traveled Abroad? No Information not available 08/12/2022 Sex: Unknown Functional Status Question Answer Note LastModified by [email or web address] Details LastModified Time Do you use any [...] SNOMED-CT Code Diagnosis ICD10 Code Diagnosis Note [id number] [address] [place] [address] 06/14/2016 14:00:46 06/14/2016 14:53:28 [id number] [address] [place] [address] 01/24/2015 13:32:34 01/24/2015 15:14:07 [id number] [address] [place] [address] 07/05/2018 13:58:11 07/05/2018 14:41:47 [id number] [address] [place] [address] 11/24/2016 10:44:59 11/24/2016 11:09:03 [id number] [address] [place] [address] 06/27/2017 08:23:37 06/27/2017 09:20:26 [id number] Michel Bertrand NP [address] [place] [address] 08/12/2022 18:27:41 08/12/2022 19:12:18 Acute sinusitis [id number] J01.90 Health Concerns Section Related Observation LastModified by Organization Detai ls LastModified Time None Recorded Concern Status LastModified by Organization Details LastModified Time None Recorded Advance Directives Directive None Recorded Payers Insurance Date Sequence Insurance Name Policy Number Policy Smith Covered Member ID Smith Member ID Guarantor Name 08/12/2022 1 [facility] [id number] Margo Casarez [id number] Margo Casarez 08/12/2022 1 [facility] 112 Dev Casarez [id number] Margo Casarez 08/13/2022 1 [place] [employer] [address] [place] [id number] Margo Casarez Notes Date Note Type Note [...] Bertrand NP [address] [place], [address], [place] - [facility] 08/12/2022 19:08:59 OBGyn Episode No OBEpisode recorded.
== END 2024-12-31 08:25 | disposition home or self-care (01) ==
LOC: HO.ENCR 08:05
PROVIDERS: PCP Internal Medicine; Visit Provider Student in an Organized Health Care Education/Training Program
DX: Z85.850 Personal history of malignant neoplasm of thyroid (principal); E89.0 Postprocedural hypothyroidism
CPT/HCPCS: 99214

== ENCOUNTER → 2024-12-31 08:04 | Outpatient (BNVA) | payer OTHER, SELFPAY | PROVIDERS: PCP Internal Medicine; Visit Provider Student in an Organized Health Care Education/Training Program | DX: E89.0 Postprocedural hypothyroidism (principal); Z85.850 Personal history of malignant neoplasm of thyroid | CPT/HCPCS: 99212 ==